=== PATIENT | female | born 1965 | race Caucasian/White ===

== ENCOUNTER 2020-12-27 09:43 | Outpatient (REF) | payer SELFPAY ==
[2020-12-27 12:47] LABS: Syphilis Screen Nonreactive (Nonreactive)
[2020-12-27 15:15] LABS: CT PCR NOT DETECTED (Not Detect.); NG PCR NOT DETECTED (Not Detect.)
[2020-12-28 06:46] LABS: DHEA Sulfate 43 mcg/dL (8-188)
[2020-12-28 08:58] LABS: BV Int Neg Control Negative (Negative); BV Int Pos Control Positive (Positive)
[2020-12-29 07:52] LABS: HIV AB/AG Nonreactive (Nonreactive); HIV Num 1 0.05 S/CO (0.00-0.99)
[2020-12-29 08:09] LABS: Hepatitis B Surface Antigen Negative (Negative)
[2020-12-30 10:21] LABS: HPV 16 RNA DETECTED (NOT DETECTED); HPV mRNA E6/E7 rflx Detected (Not Detected)
[2020-12-31 12:06] LABS: Testosterone, Total 9 ng/dL (2-45)
== END 2020-12-27 09:44 | disposition home or self-care (01) ==
LOC: HO.LAB 09:43
PROVIDERS: PCP Internal Medicine; Visit Provider Obstetrics & Gynecology
DX: Z01.419 Encounter for gynecological examination (general) (routine) without abnormal findings (principal); L65.9 Nonscarring hair loss, unspecified; Z11.3 Encounter for screening for infections with a predominantly sexual mode of transmission
CPT/HCPCS: 36415; 82627; 84402; 84403; 86780; 87340; 87389; 87480; 87491; 87510; 87591; 87624; 87625; 87660; 88141; 88142

== ENCOUNTER 2021-01-04 15:35 | Outpatient (REF) | payer SELFPAY ==
--- NOTE | ~2021-01-04 | MM_ITS ---
EXAMINATION: MM SCREENING DIGITAL BREAST TOMOSYNTHESIS, BILATERAL CLINICAL INFORMATION: Screening. Asymptomatic. Prior out of state mammography from [place] currently unavailable. The lifetime risk of breast cancer based on the Tyrer-Cuzick Model is 8%. COMPARISON: None. TECHNIQUE: Digital breast tomosynthesis is performed in both the craniocaudal and mediolateral oblique views along with computer-aided detection (CAD). Synthesized 2D images are generated from the tomosynthesis. FINDINGS: There are scattered areas of fibroglandular density (ACR BI-RADS breast composition Category b). There is fine fibronodular parenchymal pattern. There is no significant mass or architectural abnormality or abnormal calcifications. Scattered punctate calcifications and vascular calcifications are noted. The axilla and skin contours are unremarkable. Radiology department staff will attempt to retrieve prior [id number] mammography to allow for comparison in an addendum report. MM/MM tomosynthesis screening BI IMPRESSION: No mammographic evidence of malignancy. ASSESSMENT: BI-RADS 2: Benign RECOMMENDATION: 1. Routine annual mammography screening. 2. Radiology department staff will attempt to retrieve prior [id number] mammography to allow for comparison in an addendum report. This patient's information was entered into a reminder system with a target due date for their next mammogram.
== END 2021-01-04 15:36 | disposition home or self-care (01) ==
LOC: HO.MAMMO 15:35
PROVIDERS: Visit Provider Internal Medicine
DX: Z12.31 Encounter for screening mammogram for malignant neoplasm of breast (principal)
CPT/HCPCS: 77063; 77067

== ENCOUNTER 2021-01-19 14:19 | Outpatient (REF) | payer SELFPAY | END 2021-01-19 14:20 | disposition home or self-care (01) | LOC: HO.LAB 14:19 | PROVIDERS: Visit Provider Obstetrics & Gynecology | DX: B97.7 Papillomavirus as the cause of diseases classified elsewhere (principal); Z98.51 Tubal ligation status | CPT/HCPCS: 57452; 88305 ==

== ENCOUNTER → 2021-01-30 13:49 | Outpatient (BNVA) | payer SELFPAY | PROVIDERS: Visit Provider Obstetrics & Gynecology ==

== ENCOUNTER → 2021-02-15 08:44 | Outpatient (BNVA) | payer OTHER, SELFPAY | PROVIDERS: Visit Provider Physician Assistant ==

== ENCOUNTER 2021-12-28 14:43 | Outpatient (REF) | payer OTHER, SELFPAY ==
[2022-01-02 22:56] LABS: HPV mRNA E6/E7 rflx Not Detected (Not Detected)
== END 2021-12-28 14:44 | disposition home or self-care (01) ==
LOC: HO.LAB 14:43
PROVIDERS: PCP Internal Medicine; Visit Provider Advanced Practice Midwife
DX: Z01.411 Encounter for gynecological examination (general) (routine) with abnormal findings (principal); Z11.51 Encounter for screening for human papillomavirus (HPV); N87.0 Mild cervical dysplasia; N64.9 Disorder of breast, unspecified
CPT/HCPCS: 87624; 88142

== ENCOUNTER → 2023-01-16 12:30 | Outpatient (BNVA) | payer OTHER, SELFPAY | PROVIDERS: PCP Internal Medicine; Visit Provider Physician Assistant ==

== ENCOUNTER 2023-01-28 15:54 | Outpatient (REF) | payer OTHER, SELFPAY ==
[2023-02-04 10:33] LABS: HPV mRNA E6/E7 rflx Not Detected (Not Detected)
== END 2023-01-28 15:55 | disposition home or self-care (01) ==
LOC: HO.LNP 15:54
PROVIDERS: PCP Internal Medicine; Visit Provider Advanced Practice Midwife
DX: Z01.419 Encounter for gynecological examination (general) (routine) without abnormal findings (principal); Z11.51 Encounter for screening for human papillomavirus (HPV); N87.0 Mild cervical dysplasia
CPT/HCPCS: 87624; 88142

== ENCOUNTER 2023-01-28 16:33 | Outpatient (REF) | payer OTHER, SELFPAY ==
[2023-01-29 04:52] LABS: Syphilis Screen Nonreactive (Nonreactive)
[2023-01-29 07:46] LABS: HBc Num1 0.06 S/CO (0.00-0.79); HIV AB/AG Nonreactive (Nonreactive); HIV Num 1 0.06 S/CO (0.00-0.99); Hepatitis B Core Antibody Nonreactive (Nonreactive); ~HepC Num1 0.13 S/CO (0.00-0.79); ~Hepatitis C Antibody Nonreactive (Nonreactive)
[2023-01-29 09:01] LABS: CT PCR NOT DETECTED (Not Detect.); NG PCR NOT DETECTED (Not Detect.)
== END 2023-01-28 16:34 | disposition home or self-care (01) ==
LOC: HO.LAB 16:33
PROVIDERS: PCP Internal Medicine; Visit Provider Advanced Practice Midwife
DX: Z11.4 Encounter for screening for human immunodeficiency virus [HIV] (principal); Z20.2 Contact with and (suspected) exposure to infections with a predominantly sexual mode of transmission
CPT/HCPCS: 0353U; 86704; 86780; 86803; 87389

== ENCOUNTER 2023-02-26 14:41 | Outpatient (REF) | payer OTHER, SELFPAY ==
[2023-02-26 14:49] LABS: MANUAL DIFF FLAG NO
[2023-02-26 15:45] LABS: Basophils Absolute Auto 0.1 X10*3/uL (0.0-0.2); Basophils Percent Auto 0.8 % (0-2); Eosinophils Absolute Auto 0.2 X10*3/uL (0.0-0.4); Eosinophils Percent Auto 3.4 % (0-4); Hematocrit 43.2 % (37.0-47.0); Hemoglobin 14.3 g/dl (12.0-16.0); Imm Gran Abs Auto 0.02 X10*3/uL (0.00-0.03); Imm Gran Pct Auto 0.3 % (0.0-0.4); Lymphocytes Absolute Auto 2.1 X10*3/uL (1.2-4.9); Lymphocytes Percent Auto 33.4 % (20-40); Mean Corpuscular HGB Conc 33.1 g/dl (31.0-35.0); Mean Corpuscular Hemoglobin 29.2 pg (27.0-33.0); Mean Corpuscular Volume 88.3 fL (80.0-98.0); Mean Platelet Volume 8.9 fL (9.4-12.3); Monocytes Absolute Auto 0.4 X10*3/uL (0.1-1.2); Monocytes Percent Auto 6.4 % (2-11); Neutrophils Absolute Auto 3.5 x10*3/uL (2.0-8.3); Neutrophils Percent Auto 55.7 % (45-73); Platelet Count 444 X10*3/uL (160-400); Red Blood Count 4.89 X10*6/uL (4.20-5.50); Red Cell Distribution Width 12.8 % (11.0-16.0); White Blood Count 6.2 X10*3/uL (4.8-10.8)
[2023-02-26 16:18] LABS: Alanine Aminotransferase 25 U/L (0-31); Albumin Level 4.5 g/dL (3.5-5.0); Alkaline Phosphatase 96 U/L (39-117); Anion Gap 10 (12-20); Aspartate Amino Transferase 21 U/L (5-31); Bilirubin Total 0.6 mg/dL (0.0-1.0); Blood Urea Nitrogen 14 mg/dL (9-16); Calcium 10.2 mg/dL (8.4-10.2); Carbon Dioxide 28 mmol/L (22-29); Chloride 106 mmol/L (96-108); Cholesterol 197 mg/dL; Estimated Glomerular Filt Rate > 60; Glucose Fasting 95 mg/dL (60-99); HDL Cholesterol 46 mg/dL; LDL Cholesterol Calculated 129 mg/dl; Potassium 4.4 mmol/L (3.3-5.1); Sodium 140 mmol/L (135-145); Total Protein 8.3 g/dL (6.5-8.0); Triglycerides 113 mg/dL
[2023-02-26 16:32] LABS: TSH reflex Free T4 1.67 uIU/mL (0.32-4.0); Vitamin D 25-OH Total 42.6 ng/mL (>30)
[2023-02-26 16:45] LABS: Folate 14.5 ng/mL (> or = 4.0); Vitamin B12 768 pg/mL (200-900)
== END 2023-02-26 14:42 | disposition home or self-care (01) ==
LOC: HO.LAB 14:41
PROVIDERS: PCP Internal Medicine; Visit Provider Nurse Practitioner Family
DX: Z00.00 Encounter for general adult medical examination without abnormal findings (principal); Z13.29 Encounter for screening for other suspected endocrine disorder; Z13.220 Encounter for screening for lipoid disorders; Z13.1 Encounter for screening for diabetes mellitus; Z20.2 Contact with and (suspected) exposure to infections with a predominantly sexual mode of transmission; D75.839 Thrombocytosis, unspecified; E66.9 Obesity, unspecified; M54.2 Cervicalgia; G47.00 Insomnia, unspecified; F41.9 Anxiety disorder, unspecified; K21.9 Gastro-esophageal reflux disease without esophagitis; N62 Hypertrophy of breast
CPT/HCPCS: 36415; 80053; 80061; 82306; 82607; 82746; 84443; 85025

== ENCOUNTER 2023-03-11 11:23 | Outpatient (REF) | payer OTHER, SELFPAY ==
--- NOTE | ~2023-03-11 | MM_ITS ---
EXAMINATION: MM SCREENING DIGITAL BREAST TOMOSYNTHESIS, BILATERAL CLINICAL INFORMATION: Screening. Asymptomatic. The lifetime risk of breast cancer based on the Tyrer-Cuzick Model is 8%. COMPARISON: Mammography: 01/04/2021; outside mammography 10/30/2011, 02/17/2009 ([facility], [place]). TECHNIQUE: Digital breast tomosynthesis is performed in both the craniocaudal and mediolateral oblique views along with computer-aided detection (CAD). Synthesized 2D images are generated from the tomosynthesis. FINDINGS: There are scattered areas of fibroglandular density (ACR BI-RADS breast composition Category b). There are no significant masses, abnormal calcifications, or other abnormalities. Fibronodular parenchymal pattern is similar to prior exams and there is no developing density or architectural abnormality. The axilla and skin contours are unremarkable. MM/MM tomosynthesis screening BI IMPRESSION: No mammographic evidence of malignancy. ASSESSMENT: BI-RADS 1: Negative RECOMMENDATION: Routine annual mammography screening. This patient's information was entered into a reminder system with a target due date for their next mammogram.
== END 2023-03-11 11:24 | disposition home or self-care (01) ==
LOC: HO.MAMMO 11:23
PROVIDERS: PCP Internal Medicine; Visit Provider Advanced Practice Midwife
DX: Z12.31 Encounter for screening mammogram for malignant neoplasm of breast (principal)
CPT/HCPCS: 77063; 77067

== ENCOUNTER 2023-03-12 12:16 | Outpatient (REF) | payer OTHER, SELFPAY ==
[2023-03-12 13:12] LABS: Hematocrit 41.5 % (37.0-47.0); Mean Corpuscular HGB Conc 33.7 g/dl (31.0-35.0); Mean Corpuscular Hemoglobin 29.7 pg (27.0-33.0); Mean Corpuscular Volume 87.9 fL (80.0-98.0); Platelet Count 365 X10*3/uL (160-400); Red Blood Count 4.72 X10*6/uL (4.20-5.50); Red Cell Distribution Width 13.1 % (11.0-16.0); White Blood Count 5.4 X10*3/uL (4.8-10.8)
[2023-03-12 13:28] LABS: Lactate Dehydrogenase 202 U/L (122-220)
== END 2023-03-12 12:17 | disposition home or self-care (01) ==
LOC: HO.LAB 12:16
PROVIDERS: PCP Internal Medicine; Visit Provider Nurse Practitioner Family
DX: R79.89 Other specified abnormal findings of blood chemistry (principal)
CPT/HCPCS: 36415; 83615; 85027

== ENCOUNTER 2023-03-27 14:19 | Outpatient (REF) | payer OTHER, SELFPAY ==
--- NOTE | ~2023-03-27 | MM_ITS ---
EXAMINATION: BONE DENSITOMETRY CLINICAL INDICATION: Unspecified menopausal and perimenopausal disorder. COMPARISON: This is the patient's baseline examination. TECHNIQUE: Using a [employer] DXA System (software version: 13.1) manufactured by [employer], dual-energy x-ray absorptiometry was performed of the lumbar spine and left hip. The images are of good technical quality. Summary results are attached. FINDINGS: LEFT FEMUR, NECK: BMD 0.912 g/cm2, Z-score -0.3, T-score -0.9, normal. LEFT FEMUR, TOTAL: BMD 1.007 g/cm2, Z-score 0.2, T-score 0.0, normal. AP SPINE L1-L4 (excluding L3): The data of L1-L4 has been changed to exclude the L3 vertebral body, because increased degenerative sclerosis at this level may cause overestimation of lumbar spine density. BMD 1.255 g/cm2, Z-score 0.9, T-score 0.7, normal. IDENTIFIED RISK FACTORS: Family history (parent hip fracture), menopause. HISTORY OF FRACTURE: None listed. MEDICATIONS: None listed. MM/XR DEXA axial skeleton IMPRESSION: 1. DIAGNOSIS: Normal bone density based on the lowest T-score value of -0.9 in the femoral neck applying World Health Organization criteria. 2. 10-YEAR FRACTURE RISK PREDICTION, FRAX: According to the guidelines, FRAX calculation should only be performed on patients in the osteopenia bone density category. Therefore, FRAX was not performed on this patient. 3. Treatment Recommendations: NOF guidelines recommend consideration for treatment in postmenopausal women and men age 50 and older presenting with the following: -A hip or vertebral (clinical or morphometric) fracture. -T-score less than or equal to -2.5 at the femoral neck or spine after appropriate evaluation to exclude secondary causes. -Low bone mass at the hip or spine and a 10-year fracture probability by FRAX of greater than or equal to 3% for hip fracture or greater than or equal to 20% for major osteoporotic fracture based on the [place] adapted WHO algorithm. 4. Other Recommendations: All treatment decisions require clinical judgment and consideration of individual patient factors, including patient preferences, comorbidities, previous drug use, risk factors not captured in the FRAX model (e.g. frailty, falls, vitamin D deficiency, increased bone turnover, interval significant decline in bone density) and possible under or overestimation of fracture risk by FRAX. FUTURE SCAN RECOMMENDATION: People with diagnosed cases of osteoporosis or at high risk for fracture should have regular bone mineral density tests. For patients eligible for Medicare, routine testing is allowed once every 2 years. The testing frequency can be increased to one year for patients who have rapidly progressing disease, those who are receiving or discontinuing medical therapy to restore bone mass, or have additional risk factors.
== END 2023-03-27 14:20 | disposition home or self-care (01) ==
LOC: HO.MAMMO 14:19
PROVIDERS: PCP Internal Medicine; Visit Provider Internal Medicine
DX: Z13.820 Encounter for screening for osteoporosis (principal); Z78.0 Asymptomatic menopausal state
CPT/HCPCS: 77080

== ENCOUNTER 2023-05-12 11:00 | Outpatient (RCR) | payer OTHER, SELFPAY ==
--- NOTE | 2023-03-31 14:13 | MHC.PT.EP ---
[facility] [place] Office [place] Office [place] Office [address] [phone] F: [phone] F: [phone] F: [phone] F: [phone] Physical Therapy Plan of Care Date of Evaluation: Date of Surgery: NA Diagnosis: R hip pain Assessment: Gina is a 58 yo female referred to PT for R hip pain. Impairments include decrease B hip/knee strength R>L, pain at R greater trochanter, tight/painful B ITB R>L, tight B HS, tight quads, pain from L5-L1 from PAs, pain with all lumbar ROM, altered SI symmetry and pain at PSIS/SIJ. Functional limitations include pain with prolonged standing and sitting, and pain with lifting up objects. PT needed to address aforementioned impairments and functional limitations. PT to include STM to ITB, B LE strengthening, B LE stretching, core strengthening, US, hot/cold pack, pt education, and HEP Frequency and Duration: The patient will be seen 2x per week for 4 weeks Short Term Goals: In 2 weeks... 1. Pt will be I with all HEP 2. Pt will have less than 50% pain over greater trochanter/ITB which will improve tolerance to SL. Retirement Goals: In 4 weeks... 1. 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 Pt will be able to move B LE through all planes of motion without pain which will enable her to stand for long durations while playing pool. Treatment Plan: Modalities to reduce pain, spasms and effusion. Manual therapy to restore motion and function. Therapeutic exercise to improve strength and flexibility. Neuromuscular re-education for posture and balance. Therapeutic activities to return to functional activities of daily living. Electronically signed by: Neena Lassiter PT DPT Please sign and return to therapist. Thank you for your referral.
--- NOTE | 2023-05-14 10:45 | MHC.PT.DC ---
[facility] [place] Office [place] Office [place] Office [address] [phone] F: [phone] F: [phone] F: [phone] F: [phone] Physical Therapy Discharge Report Diagnosis: R hip pain Date of Surgery: NA Date of Evaluation: 03/31/23 Date of Discharge: 05/14/23 Treatments to Date: 7 Cancellations to Date: No Shows to Date: Discharge Status: Achieved Goals Improved Function Independent with HEP Discharge Summary: Gina has completed 7 PT visits and has made significant improvements. She has achieved all goals set for her. She is independent with all her HEP as well. She is therefore being d/c from PT today. Gina was in agreement with the plan. All HEP reviewed with her. Electronically signed by: Neena Lassiter, PT DPT Please sign and return to therapist. Thank you for your referral.
== END 2023-05-14 10:45 | disposition home or self-care (01) ==
LOC: HO.PT 11:00
PROVIDERS: PCP Internal Medicine; Visit Provider Nurse Practitioner Family
DX: M25.551 Pain in right hip (principal)
CPT/HCPCS: 97110; 97140; 97161; 97530

== ENCOUNTER 2023-05-22 09:48 | Day surgery (SDC) | payer OTHER, SELFPAY ==
[2023-05-20 14:38] VITALS: BMI 34.0
--- NOTE | 2023-05-21 10:37 | HO.ANESPROP2 ---
Documented by User: Addie Luna NP 05/21/23 10:38 HPI - Anesthesia Eval Consult details Narrative: 58yo F for Upper Endoscopy and Colonoscopy [facility] Active Problems Active Problems: All Active Problems (Updated 05/20/23 @ 14:37 by Daniella Jones RN) Encounter for screening colonoscopy (Acute) Acid reflux (Acute) Adult general medical exam (Acute) Screening for hypothyroidism (Acute) Screening for hyperlipidemia (Acute) Screening for diabetes mellitus (Acute) Neck pain (Acute) Bilateral shoulder pain (Acute) Obesity (BMI 30.0-34.9) (Acute) Right hip pain (Acute) Large breasts (Acute) Elevated platelet count (Acute) Insomnia (Acute) ABDIEL (generalized anxiety disorder) (Acute) Tension headache (Acute) Constipation by delayed colonic transit (Acute) Obesity (Acute) Past Medical History Medical History GERD (gastroesophageal reflux disease) Insomnia ABDIEL (generalized anxiety disorder) Tension headache Constipation by delayed colonic transit Obesity Dysplasia of cervix, low grade (DAVID 1) Family History Family History Father Heart disease Stroke Mother History of hysterectomy Parkinson's disease Sister History of hysterectomy, Onset Age: 28 Hiatal hernia Sister Hiatal hernia Surgical History Surgical History History of bilateral tubal ligation History of carpal tunnel release Social History Social History Household Members: None Housing: House Are you a primary tree care foreman to a significant other at home: No Do you presently have visiting nurse or other home services: No Alcohol intake: current Alcohol intake frequency: holidays/special occasions only Alcohol type: beer, wine and hard liquor Patient Tobacco Use Status: Never used Tobacco e-Cigarette/Vaping Use: Never Used Second Hand Smoke Exposure: No Have you been hit, kicked, punched, or otherwise hurt by someone within the past year? 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[employer] Current occupational exposures/hazards: No Sexual orientation: Straight/Heterosexual Gender identity: Female Cognitive needs: No Hearing needs: No Vision needs: No Meds Allergies Allergy/AdvReac Type Severity Reaction Status Date / Time No Known Allergies Allergy Verified 02/20/23 16:32 Home Medications Medication Instructions Recorded Confirmed Last Taken Type melatonin 10 mg tablet 10 mg PO BEDTIME PRN Sleep 04/16/21 02/20/23 Unknown History Exam Exam Date and Time: May 21, 2023 1037 Height,Weight and Vital Signs: Height 5 ft 4 in Weight 89.811 kg Pertinent Lab Results Pertinent Lab Results: Laboratory Tests 02/26/23 03/12/23 14:49 12:30 WBC 5.4 Hgb 14.0 Hct 41.5 Plt Count 365 Sodium 140 Potassium 4.4 Chloride 106 Carbon Dioxide 28 BUN 14 Creatinine 0.82 Assessment and Plan Assessment Anesthesia Assessment: Chart Reviewed Documented by User: Elvis Molina MD 05/22/23 12:22 [facility] Past Medical History Medical History GERD (gastroesophageal reflux disease) Insomnia ABDIEL (generalized anxiety disorder) Tension headache Constipation by delayed colonic transit Obesity Dysplasia of cervix, low grade (DAVID 1) Family History Family History Father Heart disease Stroke Mother History of hysterectomy Parkinson's disease Sister History of hysterectomy, Onset Age: 28 Hiatal hernia Sister Hiatal hernia Family history of problems with anesthesia: No Surgical History Surgical History History of bilateral tubal ligation History of carpal tunnel release History of Problems with Anesthesia: No Social History Social History Household Members: None Housing: House Are you a primary tree care foreman to a significant other at home: No Do you presently have visiting nurse or other home services: No Alcohol intake: current Alcohol intake frequency: holidays/special occasions only Alcohol type: beer, wine and hard liquor Patient Tobacco Use Status: Never used Tobacco e-Cigarette/Vaping Use: Never Used Second Hand Smoke Exposure: No Have you been hit, kicked, punched, or otherwise hurt by someone within the past year? 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[employer] Current occupational exposures/hazards: No Sexual orientation: Straight/Heterosexual Gender identity: Female Cognitive needs: No Hearing needs: No Vision needs: No Meds Allergies Allergy/AdvReac Type Severity Reaction Status Date / Time No Known Allergies Allergy Verified 02/20/23 16:32 Home Medications Medication Instructions Recorded Confirmed Last Taken Type melatonin 10 mg tablet 10 mg PO BEDTIME PRN Sleep 04/16/21 02/20/23 Unknown History Exam Airway Mallampati Class: II TM Dist: >3cm Neck ROM: Full Loose/Missing/Broken Teeth: No Heart: ok Lungs: ok Assessment and Plan Assessment Anesthesia Assessment: Anesthesia Plan Discussed Final Anesthetic Review Family History of Problems with Anesthesia: No History of Problems with Anesthesia: No NPO: Yes ASA Class: II Final Preanesthetic Review: No Changes in Pt Med Stat, Meds/Allgs Chart Reviewed, Consent Obtained/Reviewed and Anes Risks/Benef Reviewed Patient Risk: Low Procedure Risk: Intermediate Anesthetic Plan Anesthetic Plan: MAC: and Agree w/ Assess. and Plan Disposition: Standard PACU
--- NOTE | 2023-05-22 11:39 | MHC.SHP ---
Pre-Procedural Eval Section A Date of Service: 05/22/23 The patient is an INPATIENT: No The History & Physical has been completed within 30 days and I have reviewed it.: No Section B Chief Complaint: Colon cancer screening, GERD Relevant Family History (Specify if Yes): No Relevant Social History: None Present Medications: see Short Stay Collaborative assessment Medical History: Significant History (Constipation by delayed colonic transit COVID-19 vaccine series completed Dysplasia of cervix, low grade (DAVID 1) ABDIEL (generalized anxiety disorder) Insomnia) History of Previous Operations: Relevant previous surgery/procedure and date(s) (History of bilateral tubal ligation History of carpal tunnel release) Allergies: Allergies Allergy/AdvReac Type Severity Reaction Status Date / Time No Known Allergies Allergy Verified 02/20/23 16:32 Review of Systems Sugical H&P ROS: Negative: Constitution, Cardiovascular, Respiratory and Gastrointestinal Exam Surgical H&P Exam: Normal: Heart, Normal: Lungs, Normal: Extremities and Normal: Abdomen Plan Diagnosis/Plan: Unchanged I have reviewed the history and physical and performed a pertinent physical examination on my patient. No changes have occurred unless specified. Time Spent With Patient Time: Total time managing care of this patient today ____ minutes.
[2023-05-22 11:47] VITALS: BP 145/75; PULSE 75; RESP 18; TEMP 36.4; O2SAT 96
--- NOTE | 2023-05-22 12:18 | W.PM.OPN ---
Operative Note Operative Note Date of Service: 05/22/23 Narrative: FLEXIBLE TRANSORAL UPPER GASTROINTESTINAL ENDOSCOPY WITH BIOPSIES AND COLONOSCOPY TILL CECUM Pre-op diagnosis: Screening, GERD Post-op diagnosis: GERD, gastritis, duodenitis, diverticulosis? Endoscopist:? Milton Davis MD Anesthesia:?MAC UPPER ENDOSCOPY Consent: Indications for the procedure and potential complications of bleeding, perforation, reaction to medications and missed diagnosis were discussed with the patient and informed consent was obtained. Instrument: Olympus GIF H 190 mid size upper endoscope Monitoring: Vital signs and clinical assessment, continuous EKG monitoring, Pulse oximetry, Carbon Dioxide monitoring and blood pressure monitoring were done throughout the procedure. Procedure: The patient was placed in the left lateral decubitis position and pre-procedure medications were administered and a bite block was placed. The endoscope was inserted into the mouth and advanced under direct vision to the third part of duodenum. A careful inspection was made as the upper endoscope was withdrawn including a retroflexed examination of the proximal stomach; Findings and interventions are described below. Findings: Larynx: Normal Esophagus: GE junction at 38 cms. Minimal focal esophagitis at GEJ. No Gordon's. Stomach: Moderate gastric erythema with a few 2-3 mm chronic appearing erosions. Biopsies were obtained. Grade 2 flap valve on retroflexed examination of the cardia. Duodenum: Mild duodenitis in the bulb and normal descending duodenum Intervention: Biopsies as noted above COLONOSCOPY PROCEDURE NOTE Consent: Indications for the procedure and potential complications of bleeding, perforation, reaction to medications and missed diagnosis were discussed with the patient and informed consent was obtained. Instrument: Olympus PCF H 190 L variable stiffness pediatric colonoscope Monitoring: Vital signs and clinical assessment, intermittent blood pressure monitoring, continuous EKG monitoring, Pulse oximetry and Carbon Dioxide monitoring were done throughout the procedure. Colon withdrawl time was 13 minutes. Procedure: The patient was placed in the left lateral decubitis position and pre-procedure medications were administered. After a digital rectal examination of the ano-rectum, the video colonoscope was inserted into the rectum and advanced through the colon to the cecum. The colonoscope was slowly withdrawn in a retrograde panoramic fashion and the colon mucosa was carefully examined including a retroflexed view of the rectum. Findings and interventions are described below. Procedure Difficulty: : Without difficulty Findings: Terminal Ileum: Not evaluated Cecum: Normal Ascending Colon: Normal Transverse Colon: Normal Descending Colon: Moderate diverticulosis Sigmoid Colon: Moderate diverticulosis Rectum: Normal Ano-rectum: Normal Colon preparation: Excellent Impression and Post Procedure Diagnosis: Endoscopy Findings: ESOPHAGUS: Minimal focal esophagitis at GE junction STOMACH: Moderate gastritis with chronic appearing erosions DUODENUM: Minimal duodenitis in the bulb Colonoscopy Findings: No polyps were detected Moderate diverticulosis seen in the left colon Plan: Await pathology results Patient has an appointment on 06/05/23 in the GI Clinic with JORGE Rubio . Repeat Colonoscopy in 10 years. Above findings were reviewed with the patient and GERD and diverticulosis handouts were given in the discharge area BIOPSIES SHOWED: Gastric antrum, biopsy: Gastric antral mucosa with minimal chronic inactive gastritis; negative for H pylori, intestinal metaplasia and dysplasia.
[2023-05-22 13:07] VITALS: BP 136/68; PULSE 82; RESP 15; TEMP 36.3; O2SAT 97
[2023-05-22 13:22] VITALS: BP 124/70; PULSE 59; RESP 16; TEMP 36.6; O2SAT 99
== END 2023-05-22 14:14 | disposition home or self-care (01) ==
PROVIDERS: PCP Internal Medicine; Visit Provider Internal Medicine Gastroenterology
PROC: (CPT 45378; principal; 2023-05-22 11:40)
DX: Z12.11 Encounter for screening for malignant neoplasm of colon (principal); K57.30 Diverticulosis of large intestine without perforation or abscess without bleeding; K29.60 Other gastritis without bleeding; K21.9 Gastro-esophageal reflux disease without esophagitis; E66.9 Obesity, unspecified; Z68.35 Body mass index [BMI] 35.0-35.9, adult
CPT/HCPCS: 45378; 43239; 88305; 88342; J3010

== ENCOUNTER → 2023-05-22 09:48 | Outpatient (BNV) | payer OTHER, SELFPAY | PROVIDERS: PCP Internal Medicine; Visit Provider Internal Medicine Gastroenterology | DX: Z12.11 Encounter for screening for malignant neoplasm of colon (principal); K21.9 Gastro-esophageal reflux disease without esophagitis | CPT/HCPCS: 99499 ==

== ENCOUNTER 2023-06-18 11:06 | Outpatient (AMB) | payer OTHER, SELFPAY ==
--- NOTE | 2023-06-18 11:23 | A.OFFVIS_ITS ---
Intake Vital Signs 06/18/23 11:26 Height 5 ft 3 in Weight 189 lb BMI 33.5 BP 142/76 H Blood Pressure Location Lt brachial Position Sitting Pulse 82 Intake Visit Reasons: S/p- egd/colon- Coon Intake Note: Patient follow up for Patient denies any GI issues. 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 She has cut out caffeine, chocolate Chronic constipation she does take Gummies tries to increased fiber. Reviewed procedure report, pathology and recommendation [facility] Medical History (Updated 06/18/23 @ 12:12 by Ivone Teresa PA-C) GERD (gastroesophageal reflux disease) Insomnia ABDIEL (generalized anxiety disorder) Tension headache Constipation by delayed colonic transit Obesity Dysplasia of cervix, low grade (DAVID 1) Surgical History History of esophagogastroduodenoscopy (EGD) Hx of colonoscopy History of bilateral tubal ligation History of carpal tunnel release Family History Father Heart disease Stroke Mother History of hysterectomy Parkinson's disease Sister History of hysterectomy, Onset Age: 28 Hiatal hernia Sister Hiatal hernia Social History Household Members: None Housing: House Are you a primary home care companion to a significant other at home: No Do you presently have visiting nurse or other home services: No Alcohol intake: current Alcohol intake frequency: holidays/special occasions only Alcohol type: beer, wine and hard liquor Patient Tobacco Use Status: Never used Tobacco e-Cigarette/Vaping Use: Never Used Second Hand Smoke Exposure: No service: No Current occupational status: employed 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- [employer] Current occupational exposures/hazards: No Sexual orientation: Straight/Heterosexual Gender identity: Female Cognitive needs: No Hearing needs: No Vision needs: No Female Reproductive History Menstrual Age of Menarche: 13 Review of Systems Const All systems reviewed & are unremarkable except as noted in HPI and below Card Denies chest pain and Denies dyspnea Resp Denies dyspnea GI Reports constipation and Reports heartburn Physical Exam Vital Signs: Last Vital Signs Pulse 82 06/18/23 11:26 BP 142/76 H 06/18/23 11:26 BMI result Body Mass Index 33.5 Const General: cooperative, healthy appearing, comfortable and no acute distress Orientation/consciousness: patient oriented x3 Limitations: no limitations Resp Effort & Inspection: normal respiratory effort and able to speak in complete sentences Neuro General: patient oriented x3 Extrem General: Yes full ROM Psych Appearance: grossly normal and well kempt Mental Status: mental status grossly normal Speech and movement: Normal speech and movement present Affect: normal affect Attitude: cooperative Thought process: Normal thought process present Thought content: Normal thought content present Insight: Good insight present (Psych) Judgement: Good judgement present (Psych) Results Reviewed Results Reviewed: mpression and Post Procedure Diagnosis: Endoscopy Findings: ESOPHAGUS: Minimal focal esophagitis at GE junction STOMACH: Moderate gastritis with chronic appearing erosions DUODENUM: Minimal duodenitis in the bulb Colonoscopy Findings: No polyps were detected Moderate diverticulosis seen in the left colon Plan: Await pathology results Patient has an appointment on 06/05/23 in the [facility] with JORGE Rubio . Repeat Colonoscopy in 10 years. Above findings were reviewed with the patient and GERD and diverticulosis handouts were given in the discharge area Name: Gina Manriquez Age/Sex: 58/F Attending: Milton Davis MD : 1965 Submitted by: Milton Davis MD Copies to: Marjorie Alas MD MR #: [id number] Status: [facility] Collected: 05/22/23 Location: [facility] Received: 05/22/23 Diagnosis Gastric antrum, biopsy: Gastric antral mucosa with minimal chronic inactive gastritis; negative for H pylori, intestinal metaplasia and dysplasia. Clinical History Pre-Op Dx: Screening, GERD Post-Op Dx: GERD, gastritis Microscopic Description Microscopic sections reviewed. Immunohistochemical stain for H. pylori is negative with appropriate control. Material Received Bx gastric antrum (R/O H. Pylori) Gross Description Page 1 of 2 Assessment & Plan Assessment & Plan (1) Diverticulosis: Code(s): K57.90 - Diverticulosis of intestine, part unspecified, without perforation or abscess without bleeding Plan: Maintain high-fiber diet ER protocol reviewed (2) Acid reflux: Comment: 40 mg pantoprazole Trial of Carafate for 4 weeks, b.i.d. Code(s): K21.9 - Gastro-esophageal reflux disease without esophagitis Qualifiers: Esophagitis presence: esophagitis presence not specified Qualified Code(s): K21.9 - Gastro-esophageal reflux disease without esophagitis Plan: Continue PPI Add Carafate Avoid culprits (3) Gastritis: Code(s): K29.70 - Gastritis, unspecified, without bleeding Plan: Continue PPI Carafate Medications: New sucralfate 1 g PO BID 4 weeks 56 tabs 0RF methylcellulose (laxative) (Citrucel) 500 mg PO TID 30 days 90 tabs 5RF Patient Instructions: Continue PPI Carafate Reviewed reflux precautions Call with progress Repeat asymptomatic colonoscopy 10 years Diverticulosis/diverticulitis Er protocol review Repeat asymptomatic colonoscopy 10 years Coding Level of Care Code Est Pt Level 3 (08399) Diagnoses Diverticulosis K57.90 Gastroesophageal reflux disease, unspecified whether esophagitis present K21.9 Esophagitis presence: esophagitis presence not specified Gastritis K29.70 Time Spent (min) 30
[2023-06-18 11:26] VITALS: BP 142/76; PULSE 82; BMI 33.5
== END 2023-06-18 11:49 | disposition home or self-care (01) ==
PROVIDERS: PCP Internal Medicine; Visit Provider Physician Assistant
DX: K57.90 Diverticulosis of intestine, part unspecified, without perforation or abscess without bleeding (principal); K21.9 Gastro-esophageal reflux disease without esophagitis; K29.70 Gastritis, unspecified, without bleeding
CPT/HCPCS: 99213

== ENCOUNTER → 2023-06-18 11:06 | Outpatient (BNVA) | payer OTHER, SELFPAY | PROVIDERS: PCP Internal Medicine; Visit Provider Physician Assistant ==

== ENCOUNTER 2023-08-06 11:54 | Emergency (ER) | payer SELFPAY ==
--- NOTE | ~2023-08-06 | CT_ITS ---
EXAMINATION: CT ABDOMEN AND PELVIS WITH CONTRAST CLINICAL INFORMATION: Bloody stools. Cramping. COMPARISON: None available. TECHNIQUE: Multidetector volumetric images were obtained from the superior aspect of the liver through the pubic symphysis following administration 85 mL of Omnipaque 350 intravenous contrast. Sagittal and coronal reformatted images were obtained on the technologist's workstation. Oral contrast: No This CT examination was performed using dose optimization techniques as appropriate, variously including the following: *Automated exposure control *Adjustment of mA and/or kV according to patient size (this includes techniques or standardized protocols for targeted exams where dose is matched to indication/reason for exam; i.e. extremities or head) *Use of iterative reconstruction technique DLP: 754 mGy-cm FINDINGS: LUNG BASES: There is a faint nonspecific 2 mm nodule at the right lung base. There is minimal scarring at both lung bases. LIVER, GALLBLADDER, AND BILIARY TREE: The liver is normal in size, shape, and attenuation. No focal hepatic lesion or biliary ductal dilatation is present. The gallbladder is unremarkable with no evidence of radiopaque gallstones, gallbladder wall thickening, or obvious pericholecystic inflammatory changes. PANCREAS: Unremarkable. SPLEEN: Unremarkable. ADRENAL GLANDS: Unremarkable. KIDNEYS AND URETERS: The kidneys are normal in size, shape, and attenuation. No hydronephrosis, hydroureter, or calculi seen. No perinephric stranding. BLADDER: Unremarkable. GASTROINTESTINAL TRACT: There is thickening of the distal transverse colon extending to the mid descending colon. ABDOMINAL WALL: There is a small umbilical hernia containing fat. LYMPH NODES: Normal. VASCULAR: There is atherosclerotic plaque of the abdominal aorta. PELVIC VISCERA: Unremarkable. OSSEOUS STRUCTURES: Unremarkable. CT/CT abdomen pelvis w IV con IMPRESSION: Thickening of the distal transverse to the mid descending colon consistent with a moderate colitis of uncertain etiology. Small umbilical hernia containing fat. No other significant abnormality identified. Fleischner guidelines were followed.
[2023-08-06 12:03] VITALS: BP 186/83; PULSE 89; RESP 16; TEMP 36.7; O2SAT 98; BMI 32.5
--- NOTE | 2023-08-06 12:06 | ED_ITS ---
HPI - Abdominal Pain General Chief Complaint: Abdominal Pain Stated Complaint: Stomach Cramps Dx Diverticulosis Time Seen by Provider: 08/06/23 16:22 Source: patient and family Mode of arrival: ambulatory Limitations: no limitations History of Present Illness HPI narrative: 58 yo female with hx of diverticulosis, GERD, anxiety who was at a celebration of life on Friday and did eat some food at a buffet - that night developed blood diarrhea and n/v with abdominal pain. She still has pain but bleeding has stopped and she does not feel well. She had E. Coli one other time before. No travel or abx exposure. She came in due to the persistent bloating and pain. She is not immunosuppressed. MD elicited complaint: abdominal pain Pertinent past history: none Onset (ago): day(s) (3) Pain Consistency: constant Location: diffuse Severity: moderate Quality: cramping and fullness Radiation: none Migration to: no migration Exacerbating factors: eating Relieving factors: nothing Context: possible food poisoning Associated symptoms: nausea Related Data Home Medications Medication Instructions Recorded Confirmed melatonin 10 mg tablet 10 mg PO BEDTIME PRN Sleep 04/16/21 02/20/23 minoxidil 2.5 mg tablet 2.5 mg PO DAILY 06/18/23 Previous Rx's Medication Instructions Recorded pantoprazole 40 mg tablet,delayed 40 mg PO DAILY 30 days #30 tabs 01/16/23 release hydroxyzine HCl 25 mg tablet 25 mg PO BEDTIME PRN anxiety #14 02/20/23 tabs ibuprofen 600 mg tablet 600 mg PO Q8H PRN pain #30 tabs 05/15/23 methylcellulose (laxative) 500 mg 500 mg PO TID 30 days #90 tabs 06/18/23 tablet (Citrucel) sucralfate 1 gram tablet 1 g PO BID 4 weeks #56 tabs 06/18/23 morphine 15 mg immediate release 15 mg PO Q6H PRN pain #12 tabs 08/06/23 tablet ondansetron 4 mg disintegrating 4 mg PO Q8H PRN nausea and 08/06/23 tablet vomiting #20 tabs Allergies Allergy/AdvReac Type Severity Reaction Status Date / Time No Known Allergies Allergy Verified 06/18/23 11:22 Review of Systems Review of Systems Constitutional : No Weight loss, No Fever, No Chills ENT/Mouth : No sore throat, No Rhinorrhea Eyes: No Swelling, No Redness Cardiovascular : No Chest Pain, No SOB, NoEdema Respiratory : No Cough, No Sputum, No Wheezing Gastrointestinal : Positive Nausea, no Vomiting, positive Diarrhea, positive abdominal Pain, pos Hematochezia, No Melena Genitourinary : No Dysuria, No Urinary Frequency, No Hematuria, No Urgency Musculoskeletal : No joint pain, No Myalgias, No Joint Swelling Skin : No Skin Lesions, No rash Neuro : No Weakness, No Numbness, No Dizziness, No Headache Psych : No Anxiety/Panic, No Depression Heme/Lymph: No Bruising, No Lymphadenopathy Endocrine : No Polyuria, No Polydipsia All other systems reviewed and are negative. [facility] Past Medical History Source: old records reviewed Medical History GERD (gastroesophageal reflux disease) Insomnia ABDIEL (generalized anxiety disorder) Tension headache Constipation by delayed colonic transit Obesity Dysplasia of cervix, low grade (DAVID 1) Surgical History History of esophagogastroduodenoscopy (EGD) Hx of colonoscopy History of bilateral tubal ligation History of carpal tunnel release Family History Family History Father Heart disease Stroke Mother History of hysterectomy Parkinson's disease Sister History of hysterectomy, Onset Age: 28 Hiatal hernia Sister Hiatal hernia Social History Household Members: None Housing: House Are you a primary residential care officer to a significant other at home: No Do you presently have visiting nurse or other home services: No Alcohol intake: current Alcohol intake frequency: holidays/special occasions only Alcohol type: beer, wine and hard liquor Patient Tobacco Use Status: Never used Tobacco Smoked in Last 30 Days: No e-Cigarette/Vaping Use: Never Used Second Hand Smoke Exposure: No Use of substances other than those prescribed or required for medical reasons: No Advance Directives: No service: No Current occupational status: employed 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 Oriented X3. No acute distress. Eyes: Pupils equal, round and reactive to light. ENT: Pharynx normal. Neck: Normal inspection. Neck supple. CVS: Normal heart rate and rhythm. Pulses normal. Respiratory: No respiratory distress. Breath sounds normal. Abdomen: Soft and mild diffuse ttp no rebound or guarding Skin: Skin warm and dry. Normal skin color. Normal skin turgor. Extremities: No lower extremity edema. No calf ttp Neuro: Oriented X 3. No motor deficit. No sensory deficit. Course Course Course Narrative: This is a rapid medical exam. Deferred additional HPI, ROS, PE to primary provider. 58 yo female with history of gastritis, GERD, diverticulosis here with complaints of lower abdominal pain, (initially had bloody stools w/ diarrhea which have now resolved), vomiting now resolved since Friday evening. Will obtain labs, UA, covid screen VSS Reevaluation(s) Reevaluation #1: no fevers, no vomiting, no WBC count, bloody stools have stopped - does have colitis but had bloody stools after eating food at this time I would hold abx given possible risk for HUS and E. Coli she is able to tolerate PO does not need admission. I do not suspect ischemic colitis. Reevaluation #2: pain improved with IV morphine Medical Decision Making Medical Decision Making [facility] Narrative: 58 yo female with hx of diverticulosis, GERD, anxiety here with resolved blood stools but persistent nausea, poor PO intake and abdominal pain in setting of possible exposure to sick contact or food exposure at a buffet. At this time will need basic labs, stool study, CT scan for colitis/diverticulitis. IVF x 2L, IV morphine for pain. Differential Diagnosis Differential Diagnoses: The differential diagnosis associated with the presentation includes colitis, diverticulitis, viral syndrome Admission/Observation Consideration of admission/observation: Escalation of care including admission/observation considered not toxic, tolerating PO, stable for DC no WBC count Lab Data [facility] Lab Attestation statement: I reviewed the patient's lab results. 08/06/23 12:14 08/06/23 12:14 Labs: Lab Results 08/06/23 08/06/23 Range/Units 12:14 15:27 WBC 10.8 (4.8-10.8) X10*3/uL RBC 4.69 (4.20-5.50) X10*6/uL Hgb 13.8 (12.0-16.0) g/dl Hct 41.3 (37.0-47.0) % MCV 88.1 (80.0-98.0) fL MCH 29.4 (27.0-33.0) pg MCHC 33.4 (31.0-35.0) g/dl RDW 13.0 (11.0-16.0) % Plt Count 407 H (160-400) X10*3/uL MPV 8.8 L (9.4-12.3) fL Immature Gran % (Auto) 0.4 (0.0-0.4) % Neut % (Auto) 72.4 (45-73) % Lymph % (Auto) 20.1 (20-40) % [place] % (Auto) 5.4 (2-11) % Eos % (Auto) 1.0 (0-4) % Baso % (Auto) 0.7 (0-2) % Lymph # (Auto) 2.2 (1.2-4.9) X10*3/uL [place] # (Auto) 0.6 (0.1-1.2) X10*3/uL Eos # (Auto) 0.1 (0.0-0.4) X10*3/uL Baso # (Auto) 0.1 (0.0-0.2) X10*3/uL Abs Immat Gran (auto) 0.04 H (0.00-0.03) X10*3/uL Absolute Neuts (auto) 7.8 (2.0-8.3) x10*3/uL Absolute Nucleated RBC 0.000 (0.0-0.012) X10*3/uL Nucleated RBC % (auto) 0.0 (0.0-0.2) /100WBC Sodium 141 (135-145) mmol/L Potassium 4.0 (3.3-5.1) mmol/L Chloride 106 (96-108) mmol/L Carbon Dioxide 27 (22-29) mmol/L Anion Gap 12 (12-20) BUN 9 (9-16) mg/dL Creatinine 0.96 (0.5-1.4) mg/dL Estim Creat Clear Calc 68.5 Estimated GFR 60 Random Glucose 96 (60-115) mg/dL Calcium 10.0 (8.4-10.2) mg/dL Total Bilirubin 0.4 (0.0-1.0) mg/dL Direct Bilirubin 0.2 (0.0-0.5) mg/dL AST 18 (5-31) U/L ALT 27 (0-31) U/L Alkaline Phosphatase 92 (39-117) U/L Total Protein 7.9 (6.5-8.0) g/dL Albumin 4.4 (3.5-5.0) g/dL Lipase 20 (8-78) U/L Urine Color Dark Yellow Urine Appearance Clear Urine pH 6.0 (5.0-9.0) Ur Specific Silver >= 1.030 H (1.005-1.025) Urine Protein Trace (Neg-Trace) mg/dL Urine Glucose (UA) Negative (Negative) mg/dL Urine Ketones 80 (Negative) mg/dL Urine Blood Trace H (Negative) Urine Nitrite Negative (Negative) Ur Leukocyte Esterase Small (1+) H (Negative) Urine RBC 6-10 H (0-2) /HPF Urine WBC 6-10 H (0-5) /HPF Ur Squamous Epith Cells 6-10 (0-2) /HPF Urine Bacteria 1+ (None Seen) Hyaline Casts 3-5 (0-2) /LPF COVID-19 (MAYUR) Negative (Negative) COVID-19 Clin Com See Note Independent Interpretation I performed an independent interpretation of an: CT Scan (colitis) Radiology Impression Discussion of test interpretation with radiology: I have reviewed the radiologist's reading. External Record Review External record reviewed: Inpatient record Prescription Management I considered prescription management with: Pain Medication and Other Medications Administered Generic Name Dose Route Start Last Admin Trade Name Freq PRN Reason Stop Dose Admin Sodium Chloride 1,000 mls @ 999 mls/hr 08/06/23 17:30 08/06/23 18:00 Ns IV 08/06/23 18:30 999 mls/hr .Q1H1M ZACHARIAH Administration Discontinued Medications Generic Name Dose Route Start Last Admin Trade Name Freq PRN Reason Stop Dose Admin Sodium Chloride 1,000 mls @ 999 mls/hr 08/06/23 17:00 08/06/23 17:19 Ns IV 08/06/23 18:00 999 mls/hr .Q1H1M ZACHARIAH Administration Iohexol 85 ml 08/06/23 17:24 08/06/23 17:25 Iohexol 350 Mg/Ml 100 Ml Infus..Btl IV 08/06/23 17:25 85 ml ONCE ONE Administration Morphine Sulfate 4 mg 08/06/23 16:55 08/06/23 17:20 Morphine Sulfate 4 Mg/Ml Cartridge IVPUSH 08/06/23 16:56 4 mg ONCE ONE Administration Protocol Ondansetron HCl 4 mg 08/06/23 16:55 08/06/23 17:20 Ondansetron Hcl 4 Mg/2 Ml Vial IVPUSH 08/06/23 16:56 4 mg ONCE ONE Administration Discharge Plan Discharge Clinical Impression: Colitis, Bright red rectal bleeding Patient Disposition: Home, Self-Care Instructions: Rectal Bleeding (ED), Colitis (ED) Additional Instructions: return for fevers, worsening bleeding, worsening pain, inability to eat or drink or any other concerns. BRAT - bananas, rice, apple sauce, toast stay hydrated and advance diet as tolerated over 48 hours. take a probiotic. given normal labs and possibly associated with food would hold antibiotics to prevent complications of E. Coli. H/H was stable and no WBC count. CT/CT abdomen pelvis w IV con IMPRESSION: Thickening of the distal transverse to the mid descending colon consistent with a moderate colitis of uncertain etiology. Small umbilical hernia containing fat. No other significant abnormality identified. Fleischner guidelines were followed. Prescriptions: New ondansetron 4 mg tablet,disintegrating 4 mg PO Q8H PRN (Reason: nausea and vomiting) Qty: 20 0RF morphine 15 mg tablet 15 mg PO Q6H PRN (Reason: pain) Qty: 12 0RF Rx Instructions: partial fill okay; Partial Fill upon patient request. No Action ibuprofen 600 mg tablet 600 mg PO Q8H PRN (Reason: pain) Qty: 30 0RF melatonin 10 mg tablet 10 mg PO BEDTIME PRN (Reason: Sleep) hydroxyzine HCl 25 mg tablet 25 mg PO BEDTIME PRN (Reason: anxiety) Qty: 14 0RF pantoprazole 40 mg tablet,delayed release (DR/EC) 40 mg PO DAILY 30 Days Qty: 30 11RF minoxidil 2.5 mg tablet 2.5 mg PO DAILY Citrucel 500 mg tablet 500 mg PO TID 30 Days Qty: 90 5RF sucralfate 1 gram tablet 1 g PO BID 28 Days Qty: 56 0RF
[2023-08-06 12:19] LABS: MANUAL DIFF FLAG NO
[2023-08-06 12:22] LABS: Basophils Absolute Auto 0.1 X10*3/uL (0.0-0.2); Basophils Percent Auto 0.7 % (0-2); Eosinophils Absolute Auto 0.1 X10*3/uL (0.0-0.4); Hematocrit 41.3 % (37.0-47.0); Hemoglobin 13.8 g/dl (12.0-16.0); Imm Gran Abs Auto 0.04 X10*3/uL (0.00-0.03); Imm Gran Pct Auto 0.4 % (0.0-0.4); Lymphocytes Absolute Auto 2.2 X10*3/uL (1.2-4.9); Lymphocytes Percent Auto 20.1 % (20-40); Mean Corpuscular HGB Conc 33.4 g/dl (31.0-35.0); Mean Corpuscular Hemoglobin 29.4 pg (27.0-33.0); Mean Corpuscular Volume 88.1 fL (80.0-98.0); Mean Platelet Volume 8.8 fL (9.4-12.3); Monocytes Absolute Auto 0.6 X10*3/uL (0.1-1.2); Monocytes Percent Auto 5.4 % (2-11); Neutrophils Absolute Auto 7.8 x10*3/uL (2.0-8.3); Neutrophils Percent Auto 72.4 % (45-73); Platelet Count 407 X10*3/uL (160-400); Red Blood Count 4.69 X10*6/uL (4.20-5.50); White Blood Count 10.8 X10*3/uL (4.8-10.8)
[2023-08-06 12:36] LABS: Alanine Aminotransferase 27 U/L (0-31); Albumin Level 4.4 g/dL (3.5-5.0); Alkaline Phosphatase 92 U/L (39-117); Anion Gap 12 (12-20); Aspartate Amino Transferase 18 U/L (5-31); Bilirubin Direct 0.2 mg/dL (0.0-0.5); Bilirubin Total 0.4 mg/dL (0.0-1.0); Blood Urea Nitrogen 9 mg/dL (9-16); Carbon Dioxide 27 mmol/L (22-29); Chloride 106 mmol/L (96-108); Creatinine Clr Calc Pharmacy 68.5; Estimated Glomerular Filt Rate 60; Glucose Random 96 mg/dL (60-115); Lipase 20 U/L (8-78); Sodium 141 mmol/L (135-145); Total Protein 7.9 g/dL (6.5-8.0)
[2023-08-06 12:43] LABS: COVID-19 Test Negative (Negative); IDNOW Serial# BCCEAD1C
[2023-08-06 15:14] VITALS: BP 165/79; PULSE 75; RESP 14; O2SAT 98
[2023-08-06 15:55] LABS: Appearance Urine Clear; Color Urine Dark Yellow; Glucose Urine UA Negative (Negative); Leukocyte Esterase Urine Small (1+) (Negative); Nitrite Urine Negative (Negative); Specific Gravity - Urine >= 1.030 (1.005-1.025); UMIC TRIGGER UACC YES; Urine Blood Trace (Negative); Urine Ketones 80 mg/dL (Negative); Urine Protein Trace mg/dL (Neg-Trace)
[2023-08-06 17:15] LABS: Bacteria Urine 1+ (None Seen); UACC Culture Trigger YES
[2023-08-06] MEDS: 0.9 % Sodium Chloride 1,000 ML 999 ML IV ×2 (17:19→18:00)
[2023-08-06] MEDS: ondansetron HCL 4 MG/2 ML VIAL IVPUSH (17:20)
[2023-08-06] MEDS: Morphine Sulfate 4 MG/ML CARTRIDGE IVPUSH (17:20)
[2023-08-06] MEDS: iohexoL 350 MG/ML 100 ML INFUS..BTL 85 ML IV (17:25)
--- NOTE | 2023-08-06 17:28 | PC.NURSE ---
pt a&ox4. respirations even and unlabored. pt reports 72 hours of nausea vomiting and diarrhea. pt reports blood tinged diarrhea and reports if stool does not come out, it is just blood. pt abdomen soft non tender to touch with hypoactive bowel sounds throughout. pt denies chest pain. iv established and pt medicated per nov.
[2023-08-06 17:40] VITALS: BP 147/87; PULSE 80; RESP 18; TEMP 36.7; O2SAT 98
--- NOTE | 2023-08-06 18:16 | PC.NURSE ---
per , allow fluids to complete prior to discharge.
[2023-08-06 19:09] VITALS: BP 170/82; PULSE 77; RESP 16; TEMP 36.4; O2SAT 97
== END 2023-08-06 19:22 | disposition home or self-care (01) ==
PROVIDERS: Nurse Practitioner Family; Emergency Provider Emergency Medicine; PCP Internal Medicine
DX: K52.9 Noninfective gastroenteritis and colitis, unspecified (principal); K62.5 Hemorrhage of anus and rectum; R11.2 Nausea with vomiting, unspecified; K21.9 Gastro-esophageal reflux disease without esophagitis; R10.30 Lower abdominal pain, unspecified; Z11.52 Encounter for screening for COVID-19
CPT/HCPCS: 36415; 74177; 80048; 80076; 81001; 81003; 83690; 85025; 87086; 87635; 96361; 96374; 96375; 99284; J2270; J2405; Q9967

== ENCOUNTER 2023-08-25 16:40 | Outpatient (AMB) | payer SELFPAY ==
[2023-08-25 16:42] VITALS: BP 130/72; PULSE 68; BMI 33.0
--- NOTE | 2023-08-25 16:42 | A.OFFPC_ITS ---
Vital Signs 08/25/23 16:42 Height 5 ft 4 in Weight 192 lb 3.889 oz BMI 33.0 BP 130/72 Blood Pressure Location Lt brachial Position Sitting Pulse 68 Pulse Source Palpation Intake Visit Reasons: neck pain, insomnia Pulley Man Required: No Accompanied by: Self / Same As Patient Allergies No Known Allergies Allergy (Verified 08/25/23 16:57) Medication List - Last Reconciled 08/25/23 by Marjorie Chambers MD hydroxyzine HCl 25 mg PO BEDTIME PRN melatonin 10 mg PO BEDTIME PRN methylcellulose (laxative) (Citrucel) 500 mg PO TID 30 days minoxidil 2.5 mg PO DAILY morphine 15 mg PO Q6H PRN pantoprazole 40 mg PO DAILY 30 days sucralfate 1 g PO BID 4 weeks Tobacco use date assessed: 02/20/23 HPI HPI Comments History of Present Illness Details This is a 58-year-old female with GERD, constipation, chronic neck pain and insomnia that comes today for follow-up on her conditions. GERD stable with PPIs. Constipation well controlled with Citrucel. Neck pain is still present but well controlled with conservative measures. Insomnia stable with melatonin and hydroxyzine as needed. No chest pain or shortness of breath. [facility] Medical History (Updated 08/25/23 @ 17:15 by Marjorie Chambers MD) GERD (gastroesophageal reflux disease) Insomnia ABDIEL (generalized anxiety disorder) Tension headache Constipation by delayed colonic transit Obesity Dysplasia of cervix, low grade (DAVID 1) Surgical History History of esophagogastroduodenoscopy (EGD) Hx of colonoscopy History of bilateral tubal ligation History of carpal tunnel release Family History Father Heart disease Stroke Mother History of hysterectomy Parkinson's disease Sister History of hysterectomy, Onset Age: 28 Hiatal hernia Sister Hiatal hernia Social History Household Members: None Housing: House Are you a primary animal care technician to a significant other at home: No Do you presently have visiting nurse or other home services: No Alcohol intake: current Alcohol intake frequency: holidays/special occasions only Alcohol type: beer, wine and hard liquor Patient Tobacco Use Status: Never used Tobacco e-Cigarette/Vaping Use: Never Used Second Hand Smoke Exposure: No service: No Current occupational status: employed 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 Jasen Parker, Coty Zelaya, Dragan Casarez and colleagues, with an educational lenora from [employer]. Review of Systems Const All systems reviewed & are unremarkable except as noted in HPI and below Eyes Reports no additional complaints, Denies change in vision and Denies other visual disturbances Card Denies chest pain at rest, Denies chest pain with activity, Denies edema, Denies irregular heart rhythm, Denies claudication, Denies dyspnea, Denies dyspnea on exertion, Denies orthopnea, Denies paroxysmal nocturnal dyspnea and Denies slow heart rate Resp Denies cough, Denies dyspnea and Denies dyspnea on exertion GI Denies abdominal pain, Denies change in bowel habits, Denies excessive flatus, Denies nausea and Denies vomiting Denies urinary incontinence, Denies urinary hesitancy and Denies urinary urgency Musc Denies abnormal gait, Denies atrophy, Denies deformity and Denies limited range of motion Skin/Breast Denies bleeding lesions, Denies changing lesions and Denies rash Neuro Denies abnormal gait, Denies behavioral changes and Denies lack of coordination Psych Denies behavioral changes Physical exam (Primary Care) Vital Signs: Last Vital Signs Pulse 68 08/25/23 16:42 BP 130/72 08/25/23 16:42 BMI result Body Mass Index 33.0 Tobacco/Smoking Status: Tobacco use Status Tobacco use date assessed 02/20/23 08/25/23 16:42 Patient Tobacco Use Status Never used Tobacco 08/25/23 16:42 e-Cigarette/Vaping Use Never Used 08/25/23 16:42 Thrive Assessment: Date of Thrive Assessment Date Thrive assessed 02/20/23 08/25/23 16:42 Eyes General: appearance normal, both eyes and all related structures Eyelids: Yes eyelids normal Conjunctivae: conjunctivae normal Neck Neck: Yes normal visual inspection and Yes supple Resp Effort & Inspection: normal respiratory effort Auscultation: clear to auscultation bilaterally Cardio Jugular venous distension: no JVD Rate: regular rate Rhythm: regular rhythm Heart sounds: S1 normal heart sound present and S2 normal heart sound present Extrem General: Yes full ROM Assessment and Plan Assessment & Plan (1) Neck pain: Code(s): M54.2 - Cervicalgia Plan: Continue conservative measures. (2) Insomnia: Code(s): G47.00 - Insomnia, unspecified Qualifiers: Insomnia type: psychophysiologic Qualified Code(s): F51.04 - Psychophysiologic insomnia Plan: Continue melatonin hydroxyzine as needed. (3) Constipation by delayed colonic transit: Code(s): K59.01 - Slow transit constipation Plan: Continue Citrucel as needed. (4) GERD (gastroesophageal reflux disease): Code(s): K21.9 - Gastro-esophageal reflux disease without esophagitis Plan: Continue PPIs as needed. Coding Level of Care Code Est Pt Level 4 (12250) Diagnoses Neck pain M54.2 Psychophysiological insomnia F51.04 Insomnia type: psychophysiologic Constipation by delayed colonic transit K59.01 GERD (gastroesophageal reflux disease) K21.9 Time Spent (min) 21
== END 2023-08-25 17:11 | disposition home or self-care (01) ==
PROVIDERS: PCP Internal Medicine; Visit Provider Internal Medicine
DX: M54.2 Cervicalgia (principal); F51.04 Psychophysiologic insomnia; K59.01 Slow transit constipation; K21.9 Gastro-esophageal reflux disease without esophagitis
CPT/HCPCS: 99214

== ENCOUNTER 2023-10-15 13:14 | Outpatient (AMB) | payer OTHER, SELFPAY ==
--- NOTE | 2023-10-15 13:16 | MHC.OFFVIS ---
Intake Vital Signs 10/15/23 13:17 Height 5 ft 4 in Weight 195 lb BMI 33.5 BP 122/84 Intake Visit Reasons: pain during intercourse [employer] Regional Planner: [employer] And Regional Planner Present (Netta) Allergies No Known Allergies Allergy (Verified 10/15/23 13:17) HPI HPI Comments History of Present Illness Details And is here for consult due to atrophic vaginitis. She used Replens for 6 months without success. She denies any risk to use of estrogen including any vaginal bleeding, undiagnosed breast lumps or history of breast cancer. [facility] Medical History GERD (gastroesophageal reflux disease) Insomnia ABDIEL (generalized anxiety disorder) Tension headache Constipation by delayed colonic transit Obesity Dysplasia of cervix, low grade (DAVID 1) Surgical History History of esophagogastroduodenoscopy (EGD) Hx of colonoscopy History of bilateral tubal ligation History of carpal tunnel release Family History Father Heart disease Stroke Mother History of hysterectomy Parkinson's disease Sister History of hysterectomy, Onset Age: 28 Hiatal hernia Sister Hiatal hernia Social History Household Members: None Housing: House Are you a primary rn complex care to a significant other at home: No Do you presently have visiting nurse or other home services: No Alcohol intake: current Alcohol intake frequency: holidays/special occasions only Alcohol type: beer, wine and hard liquor Patient Tobacco Use Status: Never used Tobacco e-Cigarette/Vaping Use: Never Used Second Hand Smoke Exposure: No service: No Current occupational status: employed 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- [employer] Current occupational exposures/hazards: No Sexual orientation: Straight/Heterosexual Gender identity: Female Cognitive needs: No Hearing needs: No Vision needs: No Female Reproductive History Menstrual Age of Menarche: 13 control method: permanent sterilization Permanent Sterilization: BTL Total pregnancies: 1 Full term: 1 Number of Living Children: 1 Date of last pap smear: 01/28/23 (neg) History of abnormal pap smear: Yes (01/03 +hpv 02/02 colpo david 1) Review of Systems Const All systems reviewed & are unremarkable except as noted in HPI and below Physical Exam Vital Signs: Last Vital Signs BP 122/84 10/15/23 13:17 BMI result Body Mass Index 33.5 Const General: cooperative, healthy appearing and no acute distress Orientation/consciousness: patient oriented x3 GI Inspection: Yes normal to inspection Palpation (GI): Soft to palpation and Other GI palpation findings present (Nontender) Rectal Exam - Female: visual inspection normal General: Yes bladder normal to palpation External Female Exam: normal appearance of the urethra Speculum Exam - Vagina: normal appearance of the vagina, normal palpation, normal vaginal discharge and vagina atrophic Speculum Exam - Cervix: normal appearance of the cervix and normal palpation Bimanual exam- vagina & uterus: normal bimanual exam, normal palpation, uterine size normal, bladder normal to palpation, normal palpation, uterine shape normal and non-tender Bimanual Exam- Adnexa, other: normal adnexae Neuro General: patient oriented x3 Assessment & Plan Assessment & Plan (1) Atrophic vaginitis: Code(s): N95.2 - Postmenopausal atrophic vaginitis Plan Discuss: Options for treatment of atrophic vaginitis, use, side effects, warnings, including any new or found breast lumps abnormal mammogram imaging, vaginal bleeding, go to ER if and loss of vision, blindness, severe headache, chest pain or difficulty breathing, severe abdominal pain, or any pain or swelling in an extremity. Types of medications available, cream, tablet, ring. She prefers to try the Vagifem due to prior irritation with Estrace cream. She has a pre booked annual exam in January which works out good for a follow-up timing. Advised to call sooner if there is any concerns. All of her questions and concerns were addressed to the best of my ability and shared decision making. She is agreeable to the plan of care. Medications: New estradiol (Vagifem) Use nightly for two weeks, then use twice week 10 mcg vaginal DAILY 4 weeks 30 tabs 1RF Coding Level of Care Code Est Pt Level 3 (08434) Diagnoses Atrophic vaginitis N95.2
[2023-10-15 13:17] VITALS: BP 122/84; BMI 33.5
== END 2023-10-15 14:02 | disposition home or self-care (01) ==
LOC: HO.HWS 13:14
PROVIDERS: PCP Internal Medicine; Visit Provider Advanced Practice Midwife
DX: N95.2 Postmenopausal atrophic vaginitis (principal)
CPT/HCPCS: 99213

== ENCOUNTER → 2023-10-15 13:14 | Outpatient (BNVA) | payer OTHER, SELFPAY | PROVIDERS: PCP Internal Medicine; Visit Provider Advanced Practice Midwife ==

== ENCOUNTER 2023-11-02 16:52 | Emergency (ER) | payer OTHER, SELFPAY ==
[2023-11-02 17:08] VITALS: BP 175/94; PULSE 84; RESP 16; TEMP 36.6; O2SAT 98; BMI 35.2
--- NOTE | 2023-11-02 17:09 | ED.GENADULT ---
HPI - General Adult General Chief complaint: Nausea/Vomiting/Diarrhea Stated complaint: stomach issues, bleeding, Vomit/ diarrhea Time Seen by Provider: 11/02/23 19:29 Source: patient Mode of arrival: ambulatory History of Present Illness HPI narrative: 58-year-old female who has a history of diverticulosis presents with complaints of vomiting and diarrhea with nausea since 14 30 this afternoon and reports that she also had blood in her stool as well. Patient states that she has been waiting for while and has had no diarrhea in the past 3 hours, she does describe lower abdominal discomfort. She denies any sick contacts or possible food contamination. Related Data Home Medications Medication Instructions Recorded Confirmed melatonin 10 mg tablet 10 mg PO BEDTIME PRN Sleep 04/16/21 08/25/23 minoxidil 2.5 mg tablet 2.5 mg PO DAILY 06/18/23 08/25/23 Previous Rx's Medication Instructions Recorded pantoprazole 40 mg tablet,delayed 40 mg PO DAILY 30 days #30 tabs 01/16/23 release hydroxyzine HCl 25 mg tablet 25 mg PO BEDTIME PRN anxiety #14 02/20/23 tabs methylcellulose (laxative) 500 mg 500 mg PO TID 30 days #90 tabs 06/18/23 tablet (Citrucel) sucralfate 1 gram tablet 1 g PO BID 4 weeks #56 tabs 06/18/23 estradiol 10 mcg vaginal tablet 10 mcg vaginal DAILY 4 weeks #30 10/15/23 (Vagifem) tabs Allergies Allergy/AdvReac Type Severity Reaction Status Date / Time No Known Allergies Allergy Verified 11/02/23 17:08 Review of Systems Review of Systems: Pertinent positives and negatives as stated in HPI [facility] Past Medical History Source: nursing notes reviewed Medical History GERD (gastroesophageal reflux disease) Insomnia ABDIEL (generalized anxiety disorder) Tension headache Constipation by delayed colonic transit Obesity Dysplasia of cervix, low grade (DAVID 1) Surgical History History of esophagogastroduodenoscopy (EGD) Hx of colonoscopy History of bilateral tubal ligation History of carpal tunnel release Family History Family History Father Heart disease Stroke Mother History of hysterectomy Parkinson's disease Sister History of hysterectomy, Onset Age: 28 Hiatal hernia Sister Hiatal hernia Social History Social History Household Members: None Housing: House Are you a primary child day care center worker to a significant other at home: No Do you presently have visiting nurse or other home services: No Alcohol intake: current Alcohol intake frequency: holidays/special occasions only Alcohol type: beer, wine and hard liquor Patient Tobacco Use Status: Never used Tobacco Smoked in Last 30 Days: No e-Cigarette/Vaping Use: Never Used Second Hand Smoke Exposure: No Use of substances other than those prescribed or required for medical reasons: No Advance Directives: No Advance Directives Information Provided: No Patient : No service: No Current occupational status: employed 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 GENERAL: Well developed, well nourished, in no acute distress. HEAD: Normocephalic/atraumatic EYES: PERRLA, EOMI EARS: Ext canals without abnormality NOSE: Nares patent bilateral OROPHARYNX: no oral lesions noted, posterior pharynx clear NECK: Supple, no adenopathy LUNGS: Normal breath sounds. No adventitious sounds or accessory muscle use. SpO2<98> CARDIOVASCULAR: Regular rate and rhythm without noted murmurs ABDOMEN: Soft, lower abdominal discomfort, no appreciated maximal location, non-distended with bowel sounds. MUSCULOSKELETAL: No tenderness, deformities, or effusions noted on gross inspection. EXTREMITIES: No cyanosis, clubbing or edema. SKIN: Inspection of the skin reveals no rashes NEUROLOGIC: Alert and oriented x 4. Strength and sensation to light touch were grossly intact x 4. Course Course Course Narrative: RME:?hx of diverticulosis, colitis, internal hemorrhoids here for eval of nausea, vomiting, abdominal cramping, diarrhea, and bright red blood per rectum since 1400 today. Endorses BRB in toilet bowl along with lower abdominal cramping. No clots. No straining. No known external hemorrhoids. has not eaten any red foods. no sick contacts. colonoscopy in 05/2023. denies vaginal bleeding, dysuria, hematuria, fevers. labs ordered, defer to primary provider for OBS +/- imaging. Full HPI, ROS and PE to be performed by the primary ED provider. Medical Decision Making Medical Decision Making [facility] Narrative: 58-year-old female with history and clinical presentation, DDX: Gastroenteritis, UTI, lower clinical suspicion for diverticulitis/appendicitis I reviewed all investigations and hematologic indices are negative for leukocytosis or left shift, there is no anemia or thrombocytopenia. Chemistry indices do not demonstrate an JANIE and there is no electrolyte or significant liver enzyme derangements. Urinalysis does not demonstrate UTI or hematuria. My interpretation at this time is patient may be suffering from a viral gastroenteritis, she has had no further episodes of nausea or diarrhea since her arrival to the emergency room which is additionally reassuring. Recommend that she follow-up with her primary care doctor in the next 1-2 days for re-evaluation further outpatient management. Differential Diagnosis Differential Diagnoses: The differential diagnosis associated with the presentation includes Please see the discussion above Admission/Observation Consideration of admission/observation: Escalation of care including admission/observation considered Please see the discussion above Lab Data [facility] Lab Attestation statement: I reviewed the patient's lab results. Please see the discussion above 11/02/23 17:24 11/02/23 17:24 Labs: Lab Results 11/02/23 11/02/23 Range/Units 17:24 21:08 WBC 8.7 (4.8-10.8) X10*3/uL RBC 4.43 (4.20-5.50) X10*6/uL Hgb 13.1 (12.0-16.0) g/dl Hct 39.4 (37.0-47.0) % MCV 88.9 (80.0-98.0) fL MCH 29.6 (27.0-33.0) pg MCHC 33.2 (31.0-35.0) g/dl RDW 13.2 (11.0-16.0) % Plt Count 382 (160-400) X10*3/uL MPV 8.8 L (9.4-12.3) fL Immature Gran % (Auto) 0.2 (0.0-0.4) % Neut % (Auto) 69.2 (45-73) % Lymph % (Auto) 22.2 (20-40) % [place] % (Auto) 5.9 (2-11) % Eos % (Auto) 1.6 (0-4) % Baso % (Auto) 0.9 (0-2) % Lymph # (Auto) 1.9 (1.2-4.9) X10*3/uL [place] # (Auto) 0.5 (0.1-1.2) X10*3/uL Eos # (Auto) 0.1 (0.0-0.4) X10*3/uL Baso # (Auto) 0.1 (0.0-0.2) X10*3/uL Abs Immat Gran (auto) 0.02 (0.00-0.03) X10*3/uL Absolute Neuts (auto) 6.0 (2.0-8.3) x10*3/uL Absolute Nucleated RBC 0.000 (0.0-0.012) X10*3/uL Nucleated RBC % (auto) 0.0 (0.0-0.2) /100WBC Sodium 140 (135-145) mmol/L Potassium 4.2 (3.3-5.1) mmol/L Chloride 104 (96-108) mmol/L Carbon Dioxide 29 (22-29) mmol/L Anion Gap 11 L (12-20) BUN 18 H (9-16) mg/dL Creatinine 0.92 (0.5-1.4) mg/dL Estim Creat Clear Calc 71.9 Estimated GFR > 60 Random Glucose 93 (60-115) mg/dL Calcium 10.5 H (8.4-10.2) mg/dL Magnesium 2.2 (1.6-2.6) mg/dL Total Bilirubin 0.3 (0.0-1.0) mg/dL AST 30 (5-31) U/L ALT 38 H (0-31) U/L Alkaline Phosphatase 101 (39-117) U/L Total Protein 7.8 (6.5-8.0) g/dL Albumin 4.4 (3.5-5.0) g/dL Lipase 38 (8-78) U/L Urine Color Yellow Urine Appearance Clear Urine pH 6.5 (5.0-9.0) Ur Specific [place] 1.015 (1.005-1.025) Urine Protein Negative (Neg-Trace) mg/dL Urine Glucose (UA) Negative (Negative) mg/dL Urine Ketones Negative (Negative) mg/dL Urine Blood Negative (Negative) Urine Nitrite Negative (Negative) Ur Leukocyte Esterase Trace H (Negative) Urine RBC 0-2 (0-2) /HPF Urine WBC 0-5 (0-5) /HPF Ur Squamous Epith Cells 0-2 (0-2) /HPF Urine Bacteria None Seen (None Seen) Hyaline Casts 0-2 (0-2) /LPF External Record Review External record reviewed: Outpatient record, Prior outpatient labs and Prior outpatient radiology Critical Care Time Critical Care Time Critical Care Time: Yes Total Critical Care Time: 30 Attestation: I personally attest to this time spent taking care of the patient. Discharge Plan Discharge Clinical Impression: Gastroenteritis Patient Disposition: Home, Self-Care Instructions: Gastroenteritis (ED), Nutrition Tips for Relief of Diarrhea (ED) Additional Instructions: 1. Resume all home medications as prescribed. Continue to drink plenty of water. 2. This is likely a viral GI bug, however you should follow-up with your primary care doctor in the next 2-3 days for re-evaluation. Return to the emergency room if you experience any worsening of symptoms or development of fever or chills. Prescriptions: No Action melatonin 10 mg tablet 10 mg PO BEDTIME PRN (Reason: Sleep) hydroxyzine HCl 25 mg tablet 25 mg PO BEDTIME PRN (Reason: anxiety) Qty: 14 0RF pantoprazole 40 mg tablet,delayed release (DR/EC) 40 mg PO DAILY 30 Days Qty: 30 11RF minoxidil 2.5 mg tablet 2.5 mg PO DAILY Citrucel 500 mg tablet 500 mg PO TID 30 Days Qty: 90 5RF sucralfate 1 gram tablet 1 g PO BID 28 Days Qty: 56 0RF estradiol [Vagifem] 10 mcg tablet 10 mcg vaginal DAILY 28 Days Qty: 30 1RF Rx Instructions: Use nightly for two weeks, then use twice week Referrals: Marjorie Alas MD [Primary Care Provider] -
[2023-11-02 17:28] LABS: MANUAL DIFF FLAG NO
[2023-11-02 17:48] LABS: Basophils Absolute Auto 0.1 X10*3/uL (0.0-0.2); Basophils Percent Auto 0.9 % (0-2); Eosinophils Absolute Auto 0.1 X10*3/uL (0.0-0.4); Eosinophils Percent Auto 1.6 % (0-4); Hematocrit 39.4 % (37.0-47.0); Hemoglobin 13.1 g/dl (12.0-16.0); Imm Gran Abs Auto 0.02 X10*3/uL (0.00-0.03); Imm Gran Pct Auto 0.2 % (0.0-0.4); Lymphocytes Absolute Auto 1.9 X10*3/uL (1.2-4.9); Lymphocytes Percent Auto 22.2 % (20-40); Mean Corpuscular HGB Conc 33.2 g/dl (31.0-35.0); Mean Corpuscular Hemoglobin 29.6 pg (27.0-33.0); Mean Corpuscular Volume 88.9 fL (80.0-98.0); Mean Platelet Volume 8.8 fL (9.4-12.3); Monocytes Absolute Auto 0.5 X10*3/uL (0.1-1.2); Monocytes Percent Auto 5.9 % (2-11); Neutrophils Percent Auto 69.2 % (45-73); Platelet Count 382 X10*3/uL (160-400); Red Blood Count 4.43 X10*6/uL (4.20-5.50); Red Cell Distribution Width 13.2 % (11.0-16.0); White Blood Count 8.7 X10*3/uL (4.8-10.8)
[2023-11-02 17:53] LABS: Alanine Aminotransferase 38 U/L (0-31); Albumin Level 4.4 g/dL (3.5-5.0); Alkaline Phosphatase 101 U/L (39-117); Anion Gap 11 (12-20); Aspartate Amino Transferase 30 U/L (5-31); Bilirubin Total 0.3 mg/dL (0.0-1.0); Blood Urea Nitrogen 18 mg/dL (9-16); Calcium 10.5 mg/dL (8.4-10.2); Carbon Dioxide 29 mmol/L (22-29); Chloride 104 mmol/L (96-108); Creatinine Clr Calc Pharmacy 71.9; Estimated Glomerular Filt Rate > 60; Glucose Random 93 mg/dL (60-115); Lipase 38 U/L (8-78); Magnesium 2.2 mg/dL (1.6-2.6); Potassium 4.2 mmol/L (3.3-5.1); Sodium 140 mmol/L (135-145); Total Protein 7.8 g/dL (6.5-8.0)
[2023-11-02 21:16] LABS: Appearance Urine Clear; Color Urine Yellow; Glucose Urine UA Negative (Negative); Leukocyte Esterase Urine Trace (Negative); Nitrite Urine Negative (Negative); PH 6.5 (5.0-9.0); Specific Gravity - Urine 1.015 (1.005-1.025); UMIC TRIGGER UACC YES; Urine Blood Negative (Negative); Urine Ketones Negative (Negative); Urine Protein Negative (Neg-Trace)
[2023-11-02 21:20] VITALS: BP 167/78; PULSE 78; RESP 20; TEMP 36.5; O2SAT 96
[2023-11-02 21:21] LABS: Bacteria Urine None Seen (None Seen); Hyaline Casts Urine 0-2 /LPF (0-2); RBC Urine 0-2 /HPF (0-2); Squamous Epithelial Cell Urine 0-2 /HPF (0-2); WBC Urine 0-5 /HPF (0-5)
--- NOTE | 2023-11-02 21:29 | PC.NURSE ---
pt able to provide urine sample. sample sent down to lab awaiting results
== END 2023-11-02 21:54 | disposition home or self-care (01) ==
PROVIDERS: Physician Assistant Medical; Emergency Provider Student in an Organized Health Care Education/Training Program; PCP Internal Medicine
DX: K52.9 Noninfective gastroenteritis and colitis, unspecified (principal); R11.2 Nausea with vomiting, unspecified; Z79.899 Other long term (current) drug therapy
CPT/HCPCS: 36415; 80053; 81001; 83690; 83735; 85025; 99283; 99284

== ENCOUNTER 2024-02-24 15:37 | Outpatient (AMB) | payer OTHER, SELFPAY ==
--- NOTE | 2024-02-24 15:39 | MHC.PC.OV ---
Vital Signs 02/24/24 15:42 Height 5 ft 3 in Weight 185 lb BMI 32.8 BP 126/80 Blood Pressure Location Lt brachial Position Sitting Intake Visit Reasons: Annual Exam Intake Note: Patient here for an annual physical exam Stem Cutter Required: No Accompanied by: Self / Same As Patient Allergies No Known Allergies Allergy (Verified 02/24/24 15:52) Medication List - Last Reconciled 02/24/24 by Marjorie Chambers MD estradiol (Vagifem) 10 mcg vaginal DAILY 4 weeks hydroxyzine HCl 25 mg PO BEDTIME PRN melatonin 10 mg PO BEDTIME PRN methylcellulose (laxative) (Citrucel) 500 mg PO TID 30 days minoxidil 2.5 mg PO DAILY pantoprazole 40 mg PO DAILY Tobacco use date assessed: 02/24/24 Dental Screening Dental Screen Date: 02/24/24 Did you have a dental visit in the last 12 months?: Yes Did you have a dental problem in the last 6 months where you did not have access to dental care?: No Was dental information given to patient?: Patient has dentist HPI HPI Comments History of Present Illness Details This a 58-year-old female that comes for her physical exam. Last mammogram was 2022 and was normal. Last Pap smear was 2022. Last colonoscopy was 2022. She denies any chest pain or shortness on breath. She is obese and was advised to do diet and exercise to reach BMI goal less than 30. [facility] Medical History GERD (gastroesophageal reflux disease) Insomnia ABDIEL (generalized anxiety disorder) Tension headache Constipation by delayed colonic transit Obesity Dysplasia of cervix, low grade (DAVID 1) Surgical History History of esophagogastroduodenoscopy (EGD) Hx of colonoscopy History of bilateral tubal ligation History of carpal tunnel release Family History Father Heart disease Stroke Mother History of hysterectomy Parkinson's disease Sister History of hysterectomy, Onset Age: 28 Hiatal hernia Sister Hiatal hernia Social History Household Members: None Housing: House Are you a primary personal care home administrator to a significant other at home: No Do you presently have visiting nurse or other home services: No Alcohol intake: current Alcohol intake frequency: holidays/special occasions only Alcohol type: beer, wine and hard liquor Patient Tobacco Use Status: Never used Tobacco e-Cigarette/Vaping Use: Never Used Second Hand Smoke Exposure: No service: No Current occupational status: employed 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 1. Little interest or pleasure in doing things: not at all 2. Feeling down, depressed, or hopeless: not at all 3. Trouble falling or staying asleep, or sleeping too much: not at all 4. Feeling tired or having little energy: not at all 5. Poor appetite or overeating: not at all 6. Feeling bad about yourself - or that you are a failure or have let yourself or your family down: not at all 7. Trouble concentrating on things, such as reading the newspaper or watching television: not at all 8. Moving or speaking so slowly that other people could have noticed. Or the opposite - being so fidgety or restless that you have been moving around a lot more than usual: not at all 9. Thoughts that you would be better off or of hurting yourself in some way: not at all Total score: 0 Depression Screening Interpretation: Negative Depression Screening Done: Yes 20536 - PHQ-9 Billing: Yes Source: Developed by Drs. Jasen Parker, Coty Zelaya, Dragan Casarez and colleagues, with an educational lenora from [employer]. Thrive Questionnaire Date Thrive assessed: 02/24/24 I am a: Patient What is your living situation today?: I have a steady place to live Within the past 12 months, did the food you bought not last and you didn't have the money to get more?: Never true Within the past 12 months, did you worry whether your food would run out before you got money to buy more?: Never true Do you have trouble paying for medicines?: No Do you have trouble getting transportation to medical appointments?: No Do you have trouble paying your heating and electricity bill?: No Do you have trouble taking care of your child, family member or friend?: No Do you have trouble with day-to-day activities such as bathing, preparing meals, shopping, managing finances, etc.?: No Are you currently unemployed and looking for a job?: No Are you interested in more education?: No Please select the resources that you would like help with: None Currently or been in a relationship where the following occur: no concerns reported THRIVE Score: 0 AUDIT C Alcohol Use Questionnaire (AUDIT-C) 1. How often do you have a drink containing alcohol?: Monthly or less 2. How many drinks containing alcohol do you have on a typical day when you are drinking?: 1 or 2 3. How often do you have six or more drinks on one occasion?: Never Total Score: 1 Score Reviewed/Action Taken: No ABDIEL-7 AMB Questionnaire ABDIEL-7 Date ABDIEL - 7 assessed: 02/24/24 Feeling nervous, anxious, or on edge: 1 = Several days Not being able to stop or control worryin = Not at all Worrying too much about different things: 1 = Several days Trouble relaxin = Not at all Being so restless that it is hard to sit still: 0 = Not at all Becoming easily annoyed or irritable: 0 = Not at all Feeling afraid as if something awful might happen: 0 = Not at all Total ABDIEL-7 score (0-4 normal; 5-9 mild; 10-14 moderate; 15-21 severe): 2 Source: Developed by Drs. Jasen Parker, Coty Zelaya, Dragan Casarez and colleagues, with an educational lenora from [employer]. ABDIEL-7 Assessment Billing ABDIEL-7 Assessment Tool: ABDIEL-7 Assessment 26126 Review of Systems Const All systems reviewed & are unremarkable except as noted in HPI and below Card Denies chest pain at rest, Denies chest pain with activity, Denies edema, Denies irregular heart rhythm, Denies claudication, Denies dyspnea, Denies dyspnea on exertion, Denies orthopnea, Denies paroxysmal nocturnal dyspnea and Denies slow heart rate Resp Denies cough, Denies dyspnea and Denies dyspnea on exertion GI Denies abdominal pain, Denies change in bowel habits, Denies excessive flatus, Denies nausea and Denies vomiting Neuro Denies behavioral changes, Denies confusion and Denies lack of coordination Psych Denies behavioral changes and Denies confusion Physical exam (Primary Care) Vital Signs: Last Vital Signs BP 126/80 02/24/24 15:42 BMI result Body Mass Index 32.8 BMI Assessment/Plan discussion: High BMI High, discussed plan: lifestyle, weight reduction, dietary and physical activity Tobacco/Smoking Status: Tobacco use Status Tobacco use date assessed 02/24/24 02/24/24 15:47 Patient Tobacco Use Status Never used Tobacco 02/24/24 15:40 e-Cigarette/Vaping Use Never Used 02/24/24 15:40 PHQ-9: PHQ-9 Score PHQ-9: Total score 0 02/24/24 15:47 Depression Screening Interpretation: Negative Thrive Assessment: Date of Thrive Assessment Date Thrive assessed 02/24/24 02/24/24 15:47 Currently or been in a relationship where the following occur: no concerns reported Const General: No confusion Orientation/consciousness: patient oriented x3 and No confusion HENMT Head: Yes normal to inspection, Yes normocephalic and Yes atraumatic Ears: external ears normal Eyes General: appearance normal, both eyes and all related structures Eyelids: Yes eyelids normal Conjunctivae: conjunctivae normal Neck Neck: Yes normal visual inspection and Yes supple Resp Effort & Inspection: normal respiratory effort Auscultation: clear to auscultation bilaterally Cardio Jugular venous distension: no JVD Rate: regular rate Rhythm: regular rhythm Heart sounds: S1 normal heart sound present and S2 normal heart sound present GI Inspection: Yes normal to inspection Palpation (GI): Soft to palpation and nontender Auscultation: normal bowel sounds Skin General skin exam: no rashes or lesions noted Neuro General: patient oriented x3, no focal motor deficits and No confusion Extrem General: Yes full ROM Psych Appearance: grossly normal Assessment and Plan Assessment & Plan (1) Adult general medical exam: Code(s): Z00.00 - Encounter for general adult medical examination without abnormal findings Plan: Repeat in a year. Orders: Orders Lipid Panel Today Z00.00 - Encounter for general adult medical examination without abnormal findings Comprehensive [place]. Panel Fast Today Z00.00 - Encounter for general adult medical examination without abnormal findings Coding Level of Care Code Est Pt Prev Care 40-64y(63096) Diagnoses Adult general medical exam Z00.00 Additional Codes ABDIEL-7 Assessment Billing - ABDIEL-7 Assessment Tool: ABDIEL-7 Assessment 45413 ([id number]) Time Spent (min) 30
[2024-02-24 15:42] VITALS: BP 126/80; BMI 32.8
== END 2024-02-24 16:08 | disposition home or self-care (01) ==
PROVIDERS: Visit Provider Internal Medicine
DX: Z00.00 Encounter for general adult medical examination without abnormal findings (principal)
CPT/HCPCS: 99396

== ENCOUNTER → 2024-03-24 11:00 | Outpatient (BNV) | payer OTHER, SELFPAY | PROVIDERS: PCP Internal Medicine; Visit Provider Radiology Diagnostic Radiology | DX: Z12.31 Encounter for screening mammogram for malignant neoplasm of breast (principal) | CPT/HCPCS: 77063; 77067 ==

== ENCOUNTER 2024-03-24 11:03 | Outpatient (REF) | payer OTHER, SELFPAY ==
[2024-03-24 12:53] LABS: Alanine Aminotransferase 48 U/L (0-31); Albumin Level 4.3 g/dL (3.5-5.0); Alkaline Phosphatase 102 U/L (39-117); Anion Gap 8 (12-20); Aspartate Amino Transferase 26 U/L (5-31); Bilirubin Total 0.4 mg/dL (0.0-1.0); Blood Urea Nitrogen 11 mg/dL (9-16); Calcium 9.7 mg/dL (8.4-10.2); Carbon Dioxide 30 mmol/L (22-29); Chloride 108 mmol/L (96-108); Cholesterol 221 mg/dL (<200); Estimated Glomerular Filt Rate > 60; Glucose Fasting 92 mg/dL (60-99); HDL Cholesterol 48 mg/dL (>40); LDL Cholesterol Calculated 137 mg/dL (<100); Potassium 4.4 mmol/L (3.3-5.1); Sodium 142 mmol/L (135-145); Total Protein 7.7 g/dL (6.5-8.0); Triglycerides 182 mg/dL (<150)
== END 2024-03-24 11:04 | disposition home or self-care (01) ==
LOC: HO.MAMMO 11:03
PROVIDERS: PCP Internal Medicine; Visit Provider Internal Medicine
DX: Z00.00 Encounter for general adult medical examination without abnormal findings (principal); Z12.31 Encounter for screening mammogram for malignant neoplasm of breast
CPT/HCPCS: 36415; 77063; 77067; 80053; 80061

== ENCOUNTER 2024-05-12 12:47 | Outpatient (AMB) | payer OTHER, SELFPAY ==
--- NOTE | 2024-05-12 13:14 | A.OFFPC_ITS ---
Vital Signs 05/12/24 13:18 Height 5 ft 3.5 in Weight 187 lb 6 oz BMI 32.7 BP 124/70 Blood Pressure Location Rt brachial Position Sitting Respiration 16 Pulse 78 Pulse Source Pulse Oximeter Temp 96.6 F L Temp Source Tympanic Pulse Oximetry (%) 97 Oxygen Delivery Method Room Air Intake Visit Reasons: est/ongoing coughing/moments of breathlessness Intake Note: cough x6 month causes SOB when having coughing fits, Allergies No Known Allergies Allergy (Verified 05/12/24 13:55) Medication List - Last Reconciled 05/12/24 by ELANA Medina-BC estradiol (Vagifem) 10 mcg vaginal DAILY 4 weeks hydroxyzine HCl 25 mg PO BEDTIME PRN melatonin 10 mg PO BEDTIME PRN methylcellulose (laxative) (Citrucel) 500 mg PO TID 30 days minoxidil 2.5 mg PO DAILY pantoprazole 40 mg PO DAILY Tobacco use date assessed: 02/24/24 Dental Screening Dental Screen Date: 02/24/24 HPI HPI Comments History of Present Illness Details Here today w/ c/o cough for at least 6 months Occasionally productive Having coughing fits & at this time feels SOB and feels like she has to gasp for breath. Admits this was present for years. Cough is daily, nagging worse since onset feels need to clear throat often Non-smoker. Second hand smoke exposure Is on PPI for GERD, using PRN. Using humidifier. Over the last 3-4 days at HS using Tussin w/ some relief. Denies personal hx of asthma. Had one episode of blood tinged sputum and a bloody nose after returning from [facility]. Otherwise no hemoptysis. Denies fever, chills, wt loss. 08/06/23 CT of Abd shows: LUNG BASES: There is a faint nonspecific 2 mm nodule at the right lung base. There is minimal scarring at both lung bases. Exam: Awake alert NAD Sclera and conjunctiva clear bilat Nares with clear drainage bilar, L>R, turbinates pale, no sinus tenderness with palpation bilat TM intact and clear bilat MMM, pharynx mild erythema, no exudate RRR LS CTAB Plan Check chest x-ray today given the chronicity of her cough- negative. Trial Flonase to see if this helps with the potential of postnasal drip. Recommend follow up with primary care for further management. This note is constructed using voice recognition software. While every effort has been made to ensure accuracy in rib cloth knitter, still errors may have been included Sometimes, these errors may affect the content or meaning of the given sentence . Total time spent caring for the patient today was 31 minutes. This includes time spent before the visit reviewing the chart, time spent during the visit, and time spent after the visit on documentation [facility] Medical History GERD (gastroesophageal reflux disease) Insomnia ABDIEL (generalized anxiety disorder) Tension headache Constipation by delayed colonic transit Obesity Dysplasia of cervix, low grade (DAVID 1) Surgical History History of esophagogastroduodenoscopy (EGD) Hx of colonoscopy History of bilateral tubal ligation History of carpal tunnel release Family History Father Heart disease Stroke Mother History of hysterectomy Parkinson's disease Sister History of hysterectomy, Onset Age: 28 Hiatal hernia Sister Hiatal hernia Social History Household Members: None Housing: House Are you a primary home health care case manager to a significant other at home: No Do you presently have visiting nurse or other home services: No Alcohol intake: current Alcohol intake frequency: holidays/special occasions only Alcohol type: beer, wine and hard liquor Patient Tobacco Use Status: Never used Tobacco e-Cigarette/Vaping Use: Never Used Second Hand Smoke Exposure: No service: No Current occupational status: employed 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 Jasen Parker, Coty Zelaya, Dragan Casarez and colleagues, with an educational lenora from [employer] Physical. Physical exam (Primary Care) Vital Signs: Last Vital Signs Temp 96.6 F L 05/12/24 13:18 Pulse 78 05/12/24 13:18 Resp 16 05/12/24 13:18 BP 124/70 05/12/24 13:18 Pulse Ox 97 05/12/24 13:18 Oxygen Delivery Method Room Air 05/12/24 13:18 BMI result Body Mass Index 32.7 Tobacco/Smoking Status: Tobacco use Status Tobacco use date assessed 02/24/24 05/12/24 13:23 Patient Tobacco Use Status Never used Tobacco 05/12/24 13:23 e-Cigarette/Vaping Use Never Used 05/12/24 13:23 Thrive Assessment: Date of Thrive Assessment Date Thrive assessed 02/24/24 05/12/24 13:23 Results Reviewed Results Reviewed: [address] [address] XRay Report Signed Patient: Gina Manriquez MR#: [id number] : 1965 Acct:[id number] Age/Sex: 59 / F ADM Date: 05/12/24 Loc: [facility] Attending Dr: Johnna CEDILLO Ordering Physician: Johnna Danielle Date of Service: 05/12/24 Procedure(s): XR chest 2V Accession Number(s): [id number] cc: Johnna Danielle; Marjorie Alas MD~ EXAMINATION: XR CHEST, 2 VIEWS CLINICAL INFORMATION: Chronic cough. COMPARISON: None. TECHNIQUE: PA and lateral views of the chest were obtained. FINDINGS: Lungs are clear. No consolidation, pneumothorax, or pleural effusion. Cardiac and mediastinal contours are normal. Pulmonary vasculature is unremarkable. Trachea is midline. Mild degenerative disc disease in the thoracic spine. Minimal right glenohumeral and acromioclavicular osteoarthritis. XR/XR chest 2V IMPRESSION: No acute pulmonary findings. Electronically signed by: Deon Tom MD 05/12/2024 03:51 PM EDT Dictated By: Deon Tom MD Signed By: <Electronically signed by Deon Tom MD in OV> 05/12/24 1551 DD/ 1422 TD/TT: 05/12/24 1437 Licensing Analyst: FRANSISCO Assessment and Plan Assessment & Plan (1) Chronic cough: Code(s): R05.3 - Chronic cough (2) Post-nasal drip: Code(s): R09.82 - Postnasal drip Orders: Orders XR chest 2V 05/12/24 R05.3 - Chronic cough Medications: New fluticasone propionate 50 mcg/actuation administer into each nostril 1 spray intranasal BID 16 grams 0RF Coding Level of Care Code Est Pt Level 4 (96053) Diagnoses Chronic cough R05.3 Post-nasal drip R09.82
[2024-05-12 13:18] VITALS: BP 124/70; PULSE 78; RESP 16; TEMP 35.9; O2SAT 97; BMI 32.7
== END 2024-05-12 14:01 | disposition home or self-care (01) ==
PROVIDERS: PCP Internal Medicine; Visit Provider Nurse Practitioner Family
DX: R05.3 Chronic cough (principal); R09.82 Postnasal drip
CPT/HCPCS: 99214

== ENCOUNTER 2024-05-12 14:19 | Outpatient (REF) | payer OTHER, SELFPAY ==
--- NOTE | ~2024-05-12 | XR_ITS ---
EXAMINATION: XR CHEST, 2 VIEWS CLINICAL INFORMATION: Chronic cough. COMPARISON: None. TECHNIQUE: PA and lateral views of the chest were obtained. FINDINGS: Lungs are clear. No consolidation, pneumothorax, or pleural effusion. Cardiac and mediastinal contours are normal. Pulmonary vasculature is unremarkable. Trachea is midline. Mild degenerative disc disease in the thoracic spine. Minimal right glenohumeral and acromioclavicular osteoarthritis. XR/XR chest 2V IMPRESSION: No acute pulmonary findings. Electronically signed by: Deon Tom MD 05/12/2024 03:51 PM EDT
== END 2024-05-12 14:20 | disposition home or self-care (01) ==
LOC: HO.XRAY 14:19
PROVIDERS: PCP Internal Medicine; Visit Provider Nurse Practitioner Family
DX: R05.3 Chronic cough (principal)
CPT/HCPCS: 71046

== ENCOUNTER 2025-03-01 15:02 | Outpatient (AMB) | payer SELFPAY ==
--- NOTE | 2025-03-01 15:11 | MHC.PC.OV ---
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 Hand Required: No Accompanied by: Self / Same As Patient Allergies No Known Allergies Allergy (Verified 03/01/25 15:53) Medication List - Last Reconciled 03/01/25 by Marjorie Chambers MD fluticasone propionate 50 mcg/actuation 1 spray intranasal BID melatonin 10 mg PO BEDTIME PRN methylcellulose (laxative) (Citrucel) 500 mg PO TID 30 days minoxidil 2.5 mg PO DAILY pantoprazole 40 mg PO DAILY Tobacco use date assessed: 03/01/25 Dental Screening Dental Screen Date: 03/01/25 Did you have a dental visit in the last 12 months?: Yes Did you have a dental problem in the last 6 months where you did not have access to dental care?: No Was dental information given to patient?: Patient has dentist HPI HPI Comments History of Present Illness Details The patient is a 59-year-old female presenting with a wellness check-up and management of chronic conditions. She has a history of Gastroesophageal Reflux Disease (GERD), which she manages by avoiding certain foods that trigger symptoms and taking pantoprazole as needed. Lifestyle modifications, such as not eating three hours before bedtime, have been beneficial in managing her symptoms. The patient experiences hair loss and has previously used minoxidil 2.5 mg, which she found effective. She plans to resume treatment as she has noticed increased hair loss after discontinuation. She uses a nasal spray as needed for allergic rhinitis and takes melatonin at night. Preventative care measures include a Tdap vaccination and a colonoscopy, both completed in 2022, with the next due in 2032. She also had a mammogram in 2022 and is due for a bone density screening as the last one was in 2022. - Tdap vaccination completed in 2022, next due in 2032 - Colonoscopy completed in 2022, next due in 2032 - Mammogram completed in 2022 - Bone density screening due, last completed in 2022 [facility] Medical History (Updated 03/01/25 @ 16:06 by Marjorie Chambers MD) GERD (gastroesophageal reflux disease) Insomnia ABDIEL (generalized anxiety disorder) Tension headache Constipation by delayed colonic transit Obesity Dysplasia of cervix, low grade (DAVID 1) Surgical History History of esophagogastroduodenoscopy (EGD) Hx of colonoscopy History of bilateral tubal ligation History of carpal tunnel release Family History Father Heart disease Stroke Mother History of hysterectomy Parkinson's disease Sister History of hysterectomy, Onset Age: 28 Hiatal hernia Sister Hiatal hernia Social History Household Members: None Housing: House Are you a primary career placement specialist to a significant other at home: No Do you presently have visiting nurse or other home services: No Alcohol intake: current Alcohol intake frequency: holidays/special occasions only Alcohol type: beer, wine and hard liquor Patient Tobacco Use Status: Never used Tobacco e-Cigarette/Vaping Use: Never Used Second Hand Smoke Exposure: No service: No Current occupational status: employed 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 1. Little interest or pleasure in doing things: not at all 2. Feeling down, depressed, or hopeless: not at all 3. Trouble falling or staying asleep, or sleeping too much: not at all 4. Feeling tired or having little energy: not at all 5. Poor appetite or overeating: not at all 6. Feeling bad about yourself - or that you are a failure or have let yourself or your family down: not at all 7. Trouble concentrating on things, such as reading the newspaper or watching television: not at all 8. Moving or speaking so slowly that other people could have noticed. Or the opposite - being so fidgety or restless that you have been moving around a lot more than usual: not at all 9. Thoughts that you would be better off or of hurting yourself in some way: not at all Total score: 0 Depression Screening Interpretation: Negative Depression Screening Done: Yes 13827 - PHQ-9 Billing: Yes Source: Developed by Drs. Jasen Parker, Dragan Duarte and colleagues, with an educational lenora from [employer]. Thrive Questionnaire Date Thrive assessed: 03/01/25 I am a: Patient What is your living situation today?: I have a steady place to live Within the past 12 months, did the food you bought not last and you didn't have the money to get more?: Never true Within the past 12 months, did you worry whether your food would run out before you got money to buy more?: Never true Do you have trouble paying for medicines?: No Do you have trouble getting transportation to medical appointments?: No Do you have trouble paying your heating and electricity bill?: No Do you have trouble taking care of your child, family member or friend?: No Do you have trouble with day-to-day activities such as bathing, preparing meals, shopping, managing finances, etc.?: No Are you currently unemployed and looking for a job?: No Are you interested in more education?: No Please select the resources that you would like help with: None Currently or been in a relationship where the following occur: No concerns reported THRIVE Score: 0 AUDIT C Alcohol Use Questionnaire (AUDIT-C) 1. How often do you have a drink containing alcohol?: Never Total Score: 0 Score Reviewed/Action Taken: No ABDIEL-7 AMB Questionnaire ABDIEL-7 Date ABDIEL - 7 assessed: 03/01/25 Feeling nervous, anxious, or on edge: 0 = Not at all Not being able to stop or control worryin = Not at all Worrying too much about different things: 0 = Not at all Trouble relaxin = Not at all Being so restless that it is hard to sit still: 0 = Not at all Becoming easily annoyed or irritable: 0 = Not at all Feeling afraid as if something awful might happen: 0 = Not at all Total ABDIEL-7 score (0-4 normal; 5-9 mild; 10-14 moderate; 15-21 severe): 0 Source: Developed by Coty Bianchi Kurt Kroenke and colleagues, with an educational lenora from [employer]. ABDIEL-7 Assessment Billing ABDIEL-7 Assessment Tool: ABDIEL-7 Assessment 39318 Review of Systems Const All systems reviewed & are unremarkable except as noted in HPI and below Card Denies chest pain at rest, Denies chest pain with activity, Denies edema, Denies irregular heart rhythm, Denies claudication, Denies dyspnea, Denies dyspnea on exertion, Denies orthopnea, Denies paroxysmal nocturnal dyspnea and Denies slow heart rate Resp Denies cough, Denies dyspnea and Denies dyspnea on exertion GI Denies abdominal pain, Denies change in bowel habits, Denies excessive flatus, Denies nausea and Denies vomiting Denies urinary incontinence, Denies urinary hesitancy and Denies urinary urgency Musc Denies abnormal gait, Denies atrophy, Denies deformity and Denies limited range of motion Skin/Breast Denies bleeding lesions, Denies changing lesions and Denies rash Neuro Denies abnormal gait and Denies lack of coordination Physical exam (Primary Care) Vital Signs: Last Vital Signs BP 132/82 03/01/25 15:12 BMI result Body Mass Index 33.5 BMI Assessment/Plan discussion: High BMI High, discussed plan: lifestyle, weight reduction, dietary and physical activity Tobacco/Smoking Status: Tobacco use Status Tobacco use date assessed 03/01/25 03/01/25 15:18 Patient Tobacco Use Status Never used Tobacco 03/01/25 15:18 e-Cigarette/Vaping Use Never Used 03/01/25 15:18 PHQ-9: PHQ-9 Score PHQ-9: Total score 0 03/01/25 15:54 Depression Screening Interpretation: Negative Thrive Assessment: Date of Thrive Assessment Date Thrive assessed 03/01/25 03/01/25 15:18 Currently or been in a relationship where the following occur: No concerns reported [facility] Head: Yes normal to inspection, Yes normocephalic and Yes atraumatic Ears: external ears normal Eyes General: appearance normal, both eyes and all related structures Eyelids: Yes eyelids normal Conjunctivae: conjunctivae normal Neck Neck: Yes normal visual inspection and Yes supple Resp Effort & Inspection: normal respiratory effort Auscultation: clear to auscultation bilaterally Cardio Jugular venous distension: no JVD Rate: regular rate Rhythm: regular rhythm Heart sounds: S1 normal heart sound present and S2 normal heart sound present GI Inspection: Yes normal to inspection Palpation (GI): Soft to palpation and nontender Auscultation: normal bowel sounds Skin General skin exam: no rashes or lesions noted Neuro General: no focal motor deficits Extrem General: Yes full ROM Psych Appearance: grossly normal Coding Level of Care Code Est Pt Level 3 (71517) Est Pt Prev Care 18-39y(47217) Diagnoses Adult general medical exam Z00.00 Macromastia N62 Additional Codes ABDIEL-7 Assessment Billing - ABDIEL-7 Assessment Tool: ABDIEL-7 Assessment 45484 ([id number]) PHQ-9 - 41220 - PHQ-9 Billing: Yes ([id number]) Time Spent (min) 31 Assessment & Plan Assessment & Plan (1) Adult general medical exam: Code(s): Z00.00 - Encounter for general adult medical examination without abnormal findings Category: Medical (2) Macromastia: Code(s): N62 - Hypertrophy of breast Category: Medical Plan The patient will continue managing Gastroesophageal Reflux Disease GERD) with dietary modifications and pantoprazole as needed. She is advised to maintain her current lifestyle changes, including avoiding meals three hours before bedtime. For hair loss, the patient plans to resume minoxidil treatment, which she found effective previously. She will monitor for any side effects and adjust usage accordingly. Preventative care measures include scheduling a bone density screening and maintaining up-to-date vaccinations and screenings. The patient is encouraged to continue her healthy lifestyle with the support of a salesforce trainer and body care manager. Patient was informed and verbally consented to the use of an ambient scribe for clinic note documentation during this visit. Orders: Orders Lipid Panel Today Z00.00 - Encounter for general adult medical examination without abnormal findings Comprehensive [place]. Panel Fast Today Z00.00 - Encounter for general adult medical examination without abnormal findings XR DEXA axial skeleton Today Z78.0 - Asymptomatic menopausal state Referrals Plastic Surgery Referral N62 - Hypertrophy of breast
[2025-03-01 15:12] VITALS: BP 132/82; BMI 33.5
== END 2025-03-01 16:08 | disposition home or self-care (01) ==
LOC: HO.HMCH 15:03
PROVIDERS: PCP Internal Medicine; Visit Provider Internal Medicine
DX: Z00.00 Encounter for general adult medical examination without abnormal findings (principal); N62 Hypertrophy of breast

== ENCOUNTER → 2025-03-01 15:02 | Outpatient (BNVA) | payer SELFPAY | PROVIDERS: PCP Internal Medicine; Visit Provider Internal Medicine | DX: Z00.00 Encounter for general adult medical examination without abnormal findings (principal); K21.9 Gastro-esophageal reflux disease without esophagitis; N62 Hypertrophy of breast; Z78.0 Asymptomatic menopausal state | CPT/HCPCS: 96127; 99396 ==

== ENCOUNTER 2025-07-13 13:19 | Outpatient (REF) | payer SELFPAY ==
[2025-07-13 14:33] LABS: Alanine Aminotransferase 52 U/L (0-31); Albumin Level 4.8 g/dL (3.5-5.0); Alkaline Phosphatase 92 U/L (39-117); Anion Gap 11 (12-20); Aspartate Amino Transferase 37 U/L (5-31); Blood Urea Nitrogen 13 mg/dL (9-16); Calcium 9.9 mg/dL (8.4-10.2); Carbon Dioxide 30 mmol/L (22-29); Chloride 105 mmol/L (96-108); Cholesterol 207 mg/dL (<200); Estimated Glomerular Filt Rate > 60; HDL Cholesterol 40 mg/dL (>40); Potassium 4.5 mmol/L (3.3-5.1); Sodium 141 mmol/L (135-145); Total Protein 8.2 g/dL (6.5-8.0); Triglycerides 196 mg/dL (<150)
== END 2025-07-13 13:20 | disposition home or self-care (01) ==
LOC: HO.LAB 13:19
PROVIDERS: PCP Internal Medicine; Visit Provider Internal Medicine
DX: Z00.00 Encounter for general adult medical examination without abnormal findings (principal); Z13.6 Encounter for screening for cardiovascular disorders
CPT/HCPCS: 36415; 80053; 80061

== ENCOUNTER 2025-07-19 16:40 | Outpatient (AMB) | payer SELFPAY ==
[2025-07-19 16:59] VITALS: BP 128/82; PULSE 79; RESP 18; TEMP 36.3; O2SAT 96; BMI 33.5
--- NOTE | 2025-07-19 16:59 | MHC.PC.OV ---
Vital Signs 07/19/25 16:59 Height 5 ft 3.5 in Weight 192 lb 2 oz BMI 33.5 BP 128/82 Blood Pressure Location Lt brachial Position Sitting Respiration 18 Pulse 79 Pulse Source Pulse Oximeter Temp 97.3 F Temp Source Temporal Artery Scan Pulse Oximetry (%) 96 Oxygen Delivery Method Room Air Intake Visit Reasons: Discuss weight management Supervisor Coke Handling Required: No Accompanied by: Self / Same As Patient Allergies No Known Allergies Allergy (Verified 07/19/25 17:15) Medication List - Last Reconciled 07/19/25 by Marjorie Chambers MD fluticasone propionate 50 mcg/actuation 1 spray intranasal BID melatonin 10 mg PO BEDTIME PRN methylcellulose (laxative) (Citrucel) 500 mg PO TID 30 days minoxidil 2.5 mg PO DAILY pantoprazole 40 mg PO DAILY Tobacco use date assessed: 07/19/25 Dental Screening Dental Screen Date: 07/19/25 Did you have a dental visit in the last 12 months?: Yes Did you have a dental problem in the last 6 months where you did not have access to dental care?: No Was dental information given to patient?: Patient has dentist HPI HPI Comments History of Present Illness Details The patient is a 60-year-old female presenting to discuss new weight loss medication and review recent lab work. Her current weight is 192 lbs, with a BMI of 33.5, which is consistent with Class 1 obesity. She reports difficulty with weight loss, stating she has been unable to lose more than 10 pounds with diet and exercise. Due to these challenges, she initiated treatment with a GLP-1 agonist (generic, either tirzepatide or semaglutide) yesterday at an outside clinic. Her goal with weight loss is to prepare for a breast reduction surgery she hopes to have in October or November. Recent lab results show a total cholesterol of 207, which is an improvement from 221 last year. Other lab findings include mildly elevated liver enzymes, normal kidney function, and a blood glucose of 91. Her current medications include melatonin as needed, Citrucel, minoxidil, and pantoprazole occasionally for heartburn. The patient reports no known drug allergies. [facility] Medical History GERD (gastroesophageal reflux disease) Insomnia ABDIEL (generalized anxiety disorder) Tension headache Constipation by delayed colonic transit Obesity Dysplasia of cervix, low grade (DAVID 1) Surgical History History of esophagogastroduodenoscopy (EGD) Hx of colonoscopy History of bilateral tubal ligation History of carpal tunnel release Family History Father Heart disease Stroke Mother History of hysterectomy Parkinson's disease Sister History of hysterectomy, Onset Age: 28 Hiatal hernia Sister Hiatal hernia Social History Household Members: None Housing: House Are you a primary healthcare network consultant to a significant other at home: No Do you presently have visiting nurse or other home services: No Alcohol intake: current Alcohol intake frequency: holidays/special occasions only Alcohol type: beer, wine and hard liquor Patient Tobacco Use Status: Never used Tobacco e-Cigarette/Vaping Use: Never Used Second Hand Smoke Exposure: No service: No Current occupational status: employed 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- [employer] Current occupational exposures/hazards: No Sexual orientation: Straight/Heterosexual Gender identity: Female Cognitive needs: No Hearing needs: No Vision needs: No Female Reproductive History Menstrual Age of Menarche: 13 Questionnaire Thrive Questionnaire Date Thrive assessed: 03/01/25 I am a: Patient What is your living situation today?: I have a steady place to live Within the past 12 months, did the food you bought not last and you didn't have the money to get more?: Never true Within the past 12 months, did you worry whether your food would run out before you got money to buy more?: Never true Do you have trouble paying for medicines?: No Do you have trouble getting transportation to medical appointments?: No Do you have trouble paying your heating and electricity bill?: No Do you have trouble taking care of your child, family member or friend?: No Do you have trouble with day-to-day activities such as bathing, preparing meals, shopping, managing finances, etc.?: No Are you currently unemployed and looking for a job?: No Are you interested in more education?: No Please select the resources that you would like help with: None Currently or been in a relationship where the following occur: No concerns reported THRIVE Score: 0 ABDIEL-7 AMB Questionnaire ABDIEL-7 Date ABDIEL - 7 assessed: 03/01/25 Source: Developed by Drs. Jasen Parker, Coty Zelaya, Dragan Casarez and colleagues, with an educational lenora from [employer]. Review of Systems Const All systems reviewed & are unremarkable except as noted in HPI and below Card Denies chest pain at rest, Denies chest pain with activity, Denies edema, Denies irregular heart rhythm, Denies claudication, Denies dyspnea, Denies dyspnea on exertion, Denies orthopnea, Denies paroxysmal nocturnal dyspnea and Denies slow heart rate Resp Denies cough, Denies dyspnea and Denies dyspnea on exertion GI Denies abdominal pain, Denies change in bowel habits, Denies excessive flatus, Denies nausea and Denies vomiting Denies urinary incontinence, Denies urinary hesitancy and Denies urinary urgency Physical exam (Primary Care) Vital Signs: Last Vital Signs Temp 97.3 F 07/19/25 16:59 Pulse 79 07/19/25 16:59 Resp 18 07/19/25 16:59 BP 128/82 07/19/25 16:59 Pulse Ox 96 07/19/25 16:59 Oxygen Delivery Method Room Air 07/19/25 16:59 BMI result Body Mass Index 33.5 Tobacco/Smoking Status: Tobacco use Status Tobacco use date assessed 07/19/25 07/19/25 17:05 Patient Tobacco Use Status Never used Tobacco 07/19/25 17:05 e-Cigarette/Vaping Use Never Used 07/19/25 17:05 Thrive Assessment: Date of Thrive Assessment Date Thrive assessed 03/01/25 07/19/25 17:05 Currently or been in a relationship where the following occur: No concerns reported Resp Effort & Inspection: normal respiratory effort Auscultation: clear to auscultation bilaterally Cardio Jugular venous distension: no JVD Rate: regular rate Rhythm: regular rhythm Heart sounds: S1 normal heart sound present and S2 normal heart sound present Coding Level of Care Code Est Pt Level 3 (92922) Diagnoses Obesity (BMI 30.0-34.9) E66.9 GERD (gastroesophageal reflux disease) K21.9 Time Spent (min) 19 Assessment & Plan Assessment & Plan (1) Obesity (BMI 30.0-34.9): Code(s): E66.9 - Obesity, unspecified Category: Medical (2) GERD (gastroesophageal reflux disease): Code(s): K21.9 - Gastro-esophageal reflux disease without esophagitis Category: Medical Plan Plan 1. Obesity The patient has class 1 obesity with a BMI of 33.5. She has a history of unsuccessful weight loss attempts with diet and exercise. She has initiated a GLP-1 agonist at an outside clinic for weight management, with the goal of qualifying for breast reduction surgery. She was informed about potential side effects and confirmed she has medication for nausea. The plan is to continue with the current treatment and follow up monthly with the prescribing clinic for dose adjustments. 2. Hypercholesterolemia The patient's total cholesterol is 207, which has improved from 221 last year. Her calculated 10-year [place] risk for a cardiovascular event is 2.4%, which is considered low risk. Given the low risk, no lipid-lowering medication is recommended at this time. Management will focus on lifestyle modifications, including the current weight loss efforts.
== END 2025-07-19 17:28 | disposition home or self-care (01) ==
LOC: HO.HMCH 16:41
PROVIDERS: PCP Internal Medicine; Visit Provider Internal Medicine
DX: K21.9 Gastro-esophageal reflux disease without esophagitis (principal); E66.9 Obesity, unspecified; Z68.33 Body mass index [BMI] 33.0-33.9, adult

== ENCOUNTER → 2025-07-19 16:40 | Outpatient (BNVA) | payer SELFPAY | PROVIDERS: PCP Internal Medicine; Visit Provider Internal Medicine | DX: E66.811 Obesity, class 1 (principal); K21.9 Gastro-esophageal reflux disease without esophagitis; E78.00 Pure hypercholesterolemia, unspecified; Z68.33 Body mass index [BMI] 33.0-33.9, adult | CPT/HCPCS: 99212 ==